=== PATIENT | male | born 1955 | race Caucasian/White ===

== ENCOUNTER 2023-06-11 09:06 | Outpatient (REF) | payer MEDICARE, SELFPAY | END 2023-06-11 09:07 | disposition home or self-care (01) | LOC: HO.HOSX 09:06 | PROVIDERS: Visit Provider Orthopaedic Surgery | DX: M25.561 Pain in right knee (principal); M54.50 Low back pain, unspecified; M79.604 Pain in right leg; Z79.899 Other long term (current) drug therapy | CPT/HCPCS: 73562; 99212 ==

== ENCOUNTER 2023-06-11 11:15 | Outpatient (AMB) | payer MEDICARE, BC, SELFPAY ==
--- NOTE | 2023-06-11 11:27 | A.OFFVIS_ITS ---
Intake Vital Signs 06/11/23 11:35 Height 5 ft 10 in Weight 223 lb BMI 32.0 Intake Visit Reasons: MOVIE [employer]ER[employer]-right knee pain, Low back pain Intake Note: Toribio is a 68 year old male who presents today with complaints of progressively worsening low back pain which radiates down his right leg as well as right leg stiffness. The patient did undergo right knee arthroscopic surgery on 03/06/2022. He reports minimal discomfort in his right knee. He denies any locking or giving way. He states that his right leg feels ?weak? at times. His symptoms have gotten worse over the last year in spite of continued non operative treatments. He has tried Tylenol and anti-inflammatory medicines which gave him minimal relief. He has also done physical therapy exercises which aggravated his pain. Allergies No Known Allergies Allergy (Verified 06/11/23 11:31) Medication List - Last Reconciled 06/11/23 by Satish Huerta MD aspirin 81 mg PO DAILY dorzolamide-timolol 22.3-6.8 mg/mL 1 drp ophthalmic (eye) Q12H fexofenadine 180 mg PO DAILY hydrochlorothiazide 25 mg PO DAILY latanoprost 0.005% 1 drp ophthalmic (eye) DAILY lisinopril 5 mg PO DAILY metformin ER 500 mg PO BID methylprednisolone (Medrol (Pasquale)) PO PER PKG DIR simvastatin 20 mg PO DAILY Physical Exam Vital Signs: BMI result Body Mass Index 32.0 Const Other: Well-nourished well-developed very friendly male awake alert and oriented x3 in no acute distress Back/Spine/Pelvis Other: Low back examination shows right-sided paraspinal muscle tenderness, pain with range of motion, positive straight leg raise test on the right at 70 degrees, 4/5 strength with testing of his right hip flexors and knee extensors when compared to 5/5 strength on his left side Extrem Other: Right knee examination shows that the surgical incisions are well healed, no erythema, minimal crepitus with range of motion, no discomfort with range of motion Results Reviewed Results Reviewed: X-rays of the patient's right knee taken today show moderate joint space narrowing most significant in the medial compartment, no acute bony abnormalities Assessment & Plan Assessment & Plan (1) Low Back Pain: Code(s): M54.50 - Low back pain, unspecified Plan Mr. Salinas presents with progressively worsening low back pain which radiates into his right leg as well as associated right leg weakness and stiffness possibly due to lumbar stenosis or a disc herniation. Thus, I will send the patient for an MRI of his lumbar spine for further evaluation. I will contact him by phone once the MRI results are available. He also has intermittent discomfort in his right knee due to degenerative joint disease. At this point his right knee discomfort is tolerable to him. I did give him a prescription for a Medrol Dosepak to help with his symptoms in the meantime. He will contact me prior to the MRI should his symptoms worsen in any way. Feel free to call me at any time should questions regarding his orthopedic management arise. I spent 22 minutes in reviewing the patient's records and imaging studies, seeing the patient and documenting in the medical record. Orders: Orders XR knee RT 3V Today M25.561 - Pain in right knee MR lumbar spine wo con Today M54.50 - Low back pain, unspecified, M79.604 - Pain in right leg Medications: New methylprednisolone (Medrol (Pasquale)) PO PER PKG DIR 21 ea 0RF Coding Level of Care Code Est Pt Level 2 (05373) Diagnoses Low Back Pain M54.50
[2023-06-11 11:35] VITALS: BMI 32.0
== END 2023-06-11 12:06 | disposition home or self-care (01) ==
PROVIDERS: Visit Provider Orthopaedic Surgery
DX: M54.50 Low back pain, unspecified (principal)
CPT/HCPCS: 99213

== ENCOUNTER 2023-08-12 12:35 | Outpatient (AMB) | payer MEDICARE, BC, SELFPAY ==
--- NOTE | 2023-08-12 13:03 | A.SPINEOV_ITS ---
Intake Intake Visit Reasons: LBP Intake Note: Mr Salinas is here today c/o LBP [employer] Required: No Allergies No Known Allergies Allergy (Verified 06/11/23 11:31) Assessment & Plan Assessment & Plan (1) Neuroforaminal stenosis of lumbar spine: Code(s): M48.061 - Spinal stenosis, lumbar region without neurogenic claudication Plan Dear colleague Thank you for referring Toribio Matthews to the office today with a chief complaint of tightness of his right leg. HPI: This 68-year-old male complains of a tightness of muscles of his right leg. The tightness is in the back of his leg and calf. The symptoms get worse with walking and standing. He was diagnosed with tendinitis and put in a herman at night which alleviated the pain in that area but he is still having the other symptom. A recent dose of prednisone improve the symptoms. A knee pathology was excluded. He denies weakness or numbness. The left side is unaffected. No abnormalities of his upper extremities. PMH: Hypertension, diabetes, glaucoma Medications: Medications were recorded in [place] Allergies: NKDA Social history: . Retired. Nonsmoker Physical Exam: Pleasant male. No neurological deficits for motor sensation or reflexes. Straight leg raise is negative. Radiological Studies: MRI done at [facility] shows [id number] right L5 foraminal stenosis. Impression/Plan: This patient presents with an atypical presentation of what could be a unilateral neurogenic claudication due to L5 foraminal stenosis. I would like to refer him for a L5 block to to see if this will resolve his symptoms. The patient is very hesitant to undergo any invasive procedures, which I understand. He will call my office if he wants to proceed. We will then refer him to our pain management team. Thank you for allowing me to participate in your patients care. total time spent was 45 minutes in counseling ,coordination of plan, personal review of imaging, and subsequent plan Rohit Sauceda MD, PhD Spine Fellowship Trained Neurosurgeon Director, [facility] Coding Level of Care Code New Pt Level 4 (25243) Diagnoses Neuroforaminal stenosis of lumbar spine M48.061
== END 2023-08-12 13:44 | disposition home or self-care (01) ==
PROVIDERS: Referring Provider Orthopaedic Surgery; Visit Provider Neurological Surgery
DX: M48.061 Spinal stenosis, lumbar region without neurogenic claudication (principal)
CPT/HCPCS: 99204

== ENCOUNTER → 2023-08-12 12:35 | Outpatient (BNVA) | payer MEDICARE, BC, SELFPAY | PROVIDERS: Visit Provider Neurological Surgery | DX: M48.061 Spinal stenosis, lumbar region without neurogenic claudication (principal) | CPT/HCPCS: 99202 ==

== ENCOUNTER 2023-10-01 10:16 | Outpatient (REF) | payer MEDICARE, SELFPAY ==
--- NOTE | ~2023-10-01 | XR_ITS ---
EXAMINATION: XR HIP, RIGHT CLINICAL INFORMATION: Pain in right hip COMPARISON: None available. TECHNIQUE: Two views of the right hip. FINDINGS: No fracture. Alignment is anatomic. Hip joint space is maintained. 0.4 x 4.1 cm thin linear calcification is seen medial to the right femoral head. This is of uncertain etiology. No vascular calcifications are seen.? Tendon calcification. XR/XR hip RT min 2V IMPRESSION: 1. No significant bony abnormality. 2. 0.4 x 4.1 cm thin linear calcification is seen medial to the right femoral neck. This is of uncertain etiology.? Tendon calcification. MRI scan scan could be obtained for further evaluation.
== END 2023-10-01 10:17 | disposition home or self-care (01) ==
LOC: HO.HOSX 10:16
PROVIDERS: Visit Provider Orthopaedic Surgery
DX: M25.551 Pain in right hip (principal)
CPT/HCPCS: 73502; 99212

== ENCOUNTER 2023-10-01 13:03 | Outpatient (AMB) | payer MEDICARE, BC, SELFPAY ==
[2023-10-01 13:07] VITALS: BMI 32.0
--- NOTE | 2023-10-01 13:07 | MHC.OFFVIS ---
Vital Signs 10/01/23 13:07 Height 5 ft 10 in Weight 223 lb BMI 32.0 Intake Visit Reasons: OV - new problem RT hip pain Intake Note: Toribio is a 68 year old male who presents with complaints of progressively worsening right hip pain and stiffness. The patient states that his pain has gotten worse over the last 2 years. Most of the pain is located within his right groin. The patient was evaluated in the neurosurgery department here at [facility]. No surgical intervention was recommended. The patient has tried Tylenol and anti-inflammatory medicines which gave him minimal relief. Allergies No Known Allergies Allergy (Verified 10/01/23 13:17) Medication List - Last Reconciled 10/01/23 by Satish Huerta MD aspirin 81 mg PO DAILY dorzolamide-timolol 22.3-6.8 mg/mL 1 drp ophthalmic (eye) Q12H fexofenadine 180 mg PO DAILY hydrochlorothiazide 25 mg PO DAILY latanoprost 0.005% 1 drp ophthalmic (eye) DAILY lisinopril 5 mg PO DAILY metformin ER 500 mg PO BID simvastatin 20 mg PO DAILY PFSH Surgical History (Updated 10/01/23 @ 13:19 by Siena Leonard CMA) Hx of umbilical hernia repair Hx of left knee surgery Hx of right knee surgery Social History (Updated 10/01/23 @ 13:19 by Siena Leonard CMA) Patient Tobacco Use Status: Never used Tobacco Current occupational status: retired Current occupation: Left hand dominate Physical Exam Vital Signs: BMI result Body Mass Index 32.0 Const Other: Well-nourished well-developed very friendly male awake alert and oriented x3 in no acute distress Extrem Other: Bilateral lower extremity examination shows good capillary refill, no skin lesions noted, normal sensation light touch Right hip examination shows decreased active and passive range of motion when compared to his left hip, pain with range of motion, no tenderness over his bursa, increased pain with forward flexion and internal rotation Results Reviewed Results Reviewed: X-rays of the patient's right hip show mild joint space narrowing, no acute bony abnormalities Assessment & Plan Assessment & Plan (1) Right hip pain: Code(s): M25.551 - Pain in right hip Category: Medical Plan Mr. Salinas presents with progressively worsening right hip pain and stiffness possibly due to avascular necrosis. Thus, I will send the patient for an MRI of his right hip for further evaluation. I will contact him by phone once the MRI results are available. Feel free to call me at any time should questions regarding his orthopedic management arise. I spent 22 minutes in reviewing the patient's records and imaging studies, seeing the patient and documenting in the medical record. Orders: Orders XR hip RT min 2V 10/01/23 M25.551 - Pain in right hip MR hip RT wo con 10/01/23 M87.051 - Idiopathic aseptic necrosis of right femur
== END 2023-10-01 13:46 | disposition home or self-care (01) ==
PROVIDERS: Visit Provider Orthopaedic Surgery
DX: M25.551 Pain in right hip (principal)
CPT/HCPCS: 99213

== ENCOUNTER 2023-11-13 10:12 | Outpatient (AMB) | payer MEDICARE, SELFPAY ==
--- NOTE | 2023-11-13 10:35 | A.OFFVIS_ITS ---
Vital Signs 11/13/23 10:48 Height 5 ft 10 in Weight 223 lb BMI 32.0 Intake Visit Reasons: OV-Right hip pain-evaluation Intake Note: Toribio is a 68 year old male who presents today for evaluation of his right hip AVN with pain worsening over the last two years. He has tried and failed at least 30 days of Tylenol and NSAIDs with minimal relief. Previously was seen with Dr. Huerta who ordered an MRI and referred to Dr. Gifford for further management. [facility] states: 1. Tendinopathy and high grade partial tearing of the gluteus minimums tendon and insertion with prominent adjacent edema. There is also tendinopathy and low- grade partial tearing at the anterior gluteus medius tendon insertion at the right greater trochanter. 2. Focal degenerative full-thickness cartilage thinning at the central lateral acetabulum with minimal subarticular change. Allergies No Known Allergies Allergy (Verified 11/13/23 10:49) HPI HPI OV-Right hip pain-evaluation: Details: Toribio is a 68 year old male who presents today for evaluation of his right hip AVN with pain worsening over the last two years. He has tried and failed at least 30 days of Tylenol and NSAIDs with minimal relief. Previously was seen with Dr. Huerta who ordered an MRI and referred to Dr. Gifford for further management. He has seen spine MD and not definitive etiology was identified. he describes pain with getting into and out of a car. He has difficulty raising his knee to his chest. He describes anterior groin pain. [facility] Surgical History Hx of umbilical hernia repair Hx of left knee surgery Hx of right knee surgery Social History Patient Tobacco Use Status: Never used Tobacco Current occupational status: retired Current occupation: Left hand dominate Physical Exam Vital Signs: BMI result Body Mass Index 32.0 Const Other: Well-nourished well-developed very friendly male awake alert and oriented x3 in no acute distress Extrem Other: Right hip examination shows decreased active and passive range of motion when compared to his left hip. There is pain with range of motion especially internal rotation. Results Reviewed Results Reviewed: I personally reviewed the MR images. MRI done at [facility] states: 1. Tendinopathy and high grade partial tearing of the gluteus minimums tendon and insertion with prominent adjacent edema. There is also tendinopathy and low- grade partial tearing at the anterior gluteus medius tendon insertion at the right greater trochanter. 2. Focal degenerative full-thickness cartilage thinning at the central lateral acetabulum with minimal subarticular change. Assessment & Plan Assessment & Plan (1) Arthritis of right hip: Code(s): M16.11 - Unilateral primary osteoarthritis, right hip Category: Medical Plan: Right hip arthritis predominantly acetabular sided. He is bothered but not overly so. I recommend right hip injection under fluoro. He will retrurn to see me if ~3 months. Orders: Referrals Pain Management Referral M16.11 - Unilateral primary osteoarthritis, right hip Coding Level of Care Code Est Pt Level 4 (67597) Diagnoses Arthritis of right hip M16.11
[2023-11-13 10:48] VITALS: BMI 32.0
== END 2023-11-13 11:18 | disposition home or self-care (01) ==
PROVIDERS: Visit Provider Orthopaedic Surgery
DX: M16.11 Unilateral primary osteoarthritis, right hip (principal)
CPT/HCPCS: 99214

== ENCOUNTER → 2023-11-13 10:12 | Outpatient (BNVA) | payer MEDICARE, SELFPAY | PROVIDERS: Visit Provider Orthopaedic Surgery | DX: M16.11 Unilateral primary osteoarthritis, right hip (principal) | CPT/HCPCS: 99212 ==

== ENCOUNTER 2023-12-22 06:16 | Outpatient (REF) | payer MEDICARE, SELFPAY ==
--- NOTE | ~2023-12-22 | FL_ITS ---
EXAMINATION: XR FLUOROSCOPY WITH IMAGES CLINICAL INFORMATION: Right hip osteoarthritis. COMPARISON: None available. TECHNIQUE: Fluoroscopy Supervised By: Dr. Gallo Villatoro. Fluoroscopy Time: 0.2 minutes. Cumulative Dose: 5 mGy. DAP: 0.0764 Gycm2. Images: 2. FINDINGS: Intraoperative fluoroscopy and spot films were performed during a procedure in the OR. A needle is seen overlying the right hip joint with intra-articular contrast media present. Please correlate with Dr. Villatoro's report for complete details. FL/FL guidance in treatment room IMPRESSION: Intraoperative fluoroscopy and spot films were obtained. Please see Dr. Villatoro's report for complete details.
== END 2023-12-22 06:17 | disposition home or self-care (01) ==
LOC: CF 06:16
PROVIDERS: Visit Provider Anesthesiology
DX: M16.11 Unilateral primary osteoarthritis, right hip (principal)
CPT/HCPCS: 20610; J2795; J3301; Q9967

== ENCOUNTER 2023-12-22 13:34 | Outpatient (AMB) | payer MEDICARE, SELFPAY ==
--- NOTE | 2023-12-22 14:07 | MHC.OFFVIS ---
Vital Signs 12/22/23 14:57 12/22/23 14:58 Height 5 ft 10 in 5 ft 10 in Weight 223 lb 223 lb BMI 32.0 32.0 BP 140/67 H 130/71 Blood Pressure Location Lt brachial Lt brachial Position Sitting Sitting Respiration 14 14 Pulse 73 62 Pulse Source Pulse Oximeter Pulse Oximeter Pulse Oximetry (%) 95 97 Oxygen Delivery Method Room Air Room Air Comment pre-op post-op Intake Visit Reasons: right hip joint steroid injection Allergies No Known Allergies Allergy (Verified 12/22/23 14:59) PFSH Surgical History Hx of umbilical hernia repair Hx of left knee surgery Hx of right knee surgery Social History Patient Tobacco Use Status: Never used Tobacco Current occupational status: retired Current occupation: Left hand dominate Physical Exam Vital Signs: Last Vital Signs Pulse 62 12/22/23 14:58 Resp 14 12/22/23 14:58 BP 130/71 12/22/23 14:58 Pulse Ox 97 12/22/23 14:58 Oxygen Delivery Method Room Air 12/22/23 14:58 BMI result Body Mass Index 32.0 Assessment & Plan Assessment & Plan (1) Arthritis of right hip: Code(s): M16.11 - Unilateral primary osteoarthritis, right hip Category: Medical Plan: Right Intra-articular hip injection. This patient is suffering from right hip osteoarthritis as well as multiple tendinopathy surrounding the right hip joint, as well as some calcifications in the projection of the femoral neck on the right. He was referred by Dr. Gifford to me to perform therapeutic intra-articular hip steroid injection. Informed consent was thoroughly explained to the patient. Risks and benefits of the steroid injections were explained. Alternatives were also explained including PRP injection. All questions were explained and answered.? The patient was taken inside of the operating room where he was positioned left lateral decubitus on operating table..? Time-out was performed delineating patient's name and date of , correct site, side, the nature of the procedure, patient's allergy, preoperative antibiotic if needed, need for VT prophylaxis..? All operating room staff was participating in OR time-out procedure.? Right hip area of the patient was prepped with ChloraPrep and draped with sterile towels.? Sterilely draped C-arm was brought over the operating field and picture of left and right lateral views of the bilateral hip joints were delineated on the screen.? The smaller joint silhouette was chosen as the target.? Direction of the femoral neck was noted and the projection of that direction was delineated on the skin with skin markers.? Projection of the right trochanter to the skin was chosen as the initial needle insertion point.? After that the skin and subcutaneous tissues was anesthetized with 2% lidocaine 2.5 mL.? 22 gauge 5 in long needle was inserted through the skin and started to advance to the joint space under anterior posterior view.? When needle entered the capsule of the joint small amount of the contrast was injected delineating intra-articular space.? After that treatment solution containing ropivacaine 0.5% and 40 mg of Kenalog was injected into the joint.? The needle was withdrawn sterile dressing was applied. The patient tolerated procedure well.? He went to recovery room where he recovered uneventfully. Orders: Orders FL guidance in treatment room 12/22/23 M16.11 - Unilateral primary osteoarthritis, right hip Coding Level of Care Code Procedure Only Diagnoses Arthritis of right hip M16.11
[2023-12-22 14:57] VITALS: BP 140/67; PULSE 73; RESP 14; O2SAT 95; BMI 32.0
[2023-12-22 14:58] VITALS: BP 130/71; PULSE 62; RESP 14; O2SAT 97; BMI 32.0
== END 2023-12-22 14:38 | disposition home or self-care (01) ==
LOC: HO.PMCPRC 13:34
PROVIDERS: Visit Provider Anesthesiology
DX: M16.11 Unilateral primary osteoarthritis, right hip (principal)
CPT/HCPCS: 20610; 77002

== ENCOUNTER 2024-01-18 11:14 | Outpatient (AMB) | payer MEDICARE, SELFPAY ==
--- NOTE | 2024-01-18 11:20 | MHC.OFFVIS ---
Vital Signs 01/18/24 11:26 Height 5 ft 10 in Weight 222 lb 4 oz BMI 31.9 BP 143/74 H Blood Pressure Location Lt brachial Position Sitting Respiration 16 Pulse 66 Pulse Source Pulse Oximeter Pulse Oximetry (%) 94 Oxygen Delivery Method Room Air Intake Visit Reasons: right hip injection Intake Note: Patient comes in for post-op appointment. Reports pain 08/22. Allergies No Known Allergies Allergy (Verified 01/18/24 11:26) HPI Comments Details: Roger is very pleasant 68 years old gentleman who presents in my office with complain on pain in the right groin and right lateral thigh aggravated by walking and standing. He was referred to this office by Dr. Gifford. He reports that this pain started about 2 years ago. He never had physical therapy. He never had occupational therapy. He had a consult with Dr. Gifford and he had an MRI of the right hip performed which demonstrated [id number] hip osteoarthritis. He was referred to me to perform therapeutic right hip steroid injection. He reported today pain aggravation of seizure. He reported not even few days of pain relief after the procedure. He reported that he was upset by Dr. Gifford decision to operate on his hip at this time. He was stating that 5-6 years from now he might not be in as good health as he is now. He wants to know his options in terms of pain management to treat his pain. His past medical history significant for medication control hypertension, medication controlled diabetes type 2 elevated cholesterol. His past surgical history significant for umbilical hernia repair x2 and bilateral knee arthroscopy total of 4 surgeries. He is retired individual. He denies smoking cigarettes denies alcohol denies recreational drugs. [facility] Surgical History Hx of umbilical hernia repair Hx of left knee surgery Hx of right knee surgery Social History Patient Tobacco Use Status: Never used Tobacco Current occupational status: retired Current occupation: Left hand dominate Review of Systems Const Reports no additional complaints ENT Reports Normal hearing present Card Reports no additional complaints Resp Reports no additional complaints GI Reports no additional complaints Reports no additional complaints Musc Reports as per HPI Neuro Reports no additional complaints, Reports Normal hearing present, Denies Abnormal speech present, Denies confusion and Denies Sensory deficit (Neuro) Psych Denies confusion Physical Exam Vital Signs: Last Vital Signs Pulse 66 01/18/24 11:26 Resp 16 01/18/24 11:26 BP 143/74 H 01/18/24 11:26 Pulse Ox 94 01/18/24 11:26 Oxygen Delivery Method Room Air 01/18/24 11:26 BMI result Body Mass Index 31.9 Const General: no acute distress; No confusion Nutritional Appearance: average body habitus and well nourished Orientation/consciousness: patient oriented x3 and No confusion Limitations: no limitations Eyes General: appearance normal, both eyes and all related structures Pupils: Equal, round and reactive pupils present EOM: EOMs intact bilaterally Neck Neck: Yes full ROM Chest Chest palpation & inspection: normal inspection of the chest Resp Effort & Inspection: normal respiratory effort, able to speak in complete sentences, normal respiratory pattern, no audible wheezes and no cough Cardio Jugular venous distension: no JVD GI Inspection: Yes normal to inspection Neuro General: patient oriented x3, gait normal and No confusion Cranial nerves: Yes CN's II-XII intact bilaterally, Yes Equal, round and reactive pupils present, Yes Normal hearing present and Yes Ability to bilaterally elevate shoulders present Speech: No Abnormal speech present Gait exam (Neuro): Normal gait present Motor exam (neuro): 5/5 motor strength present throughout Sensory Exam: No Sensory deficit (Neuro) Extrem Other: On the examination there is exacerbation of the pain in the right groin and on the lateral surface of the hip with lateral rotation of the femur. There is no pain aggravation with medial rotation of the femur. Range of motion is limited on the right. General: No pedal edema Psych Speech and movement: Normal speech and movement present Affect: normal affect Attitude: cooperative Thought process: Normal thought process present Thought content: Normal thought content present Insight: Good insight present (Psych) Judgement: Good judgement present (Psych) Results Reviewed Results Reviewed: MRI done at [facility] states: 1. Tendinopathy and high grade partial tearing of the gluteus minimums tendon and insertion with prominent adjacent edema. There is also tendinopathy and low-grade partial tearing at the anterior gluteus medius tendon insertion at the right greater trochanter. 2. Focal degenerative full-thickness cartilage thinning at the central lateral acetabulum with minimal subarticular change. Assessment & Plan Assessment & Plan (1) Arthritis of right hip: Code(s): M16.11 - Unilateral primary osteoarthritis, right hip Category: Medical (2) Right hip pain: Code(s): M25.551 - Pain in right hip Category: Medical (3) Tendinopathy involving hip: Code(s): M67.959 - Unspecified disorder of synovium and tendon, unspecified thigh Category: Medical (4) Chronic pain syndrome: Code(s): G89.4 - Chronic pain syndrome Category: Medical Plan This patient was diagnose with tendinopathy and arthritis of the right hip as well as chronic pain syndrome. Unfortunately injection of the steroids into right hip joint did not alleviate his pain. Patient is very upset that he can not go for total hip replacement now, he states that when he is 73 his health condition might not be as good as it is today. I pointed out to him that with moderate hip osteoarthritis there is no indication for his desired surgery and the insurance companies will not cover the procedure. I offered him today PRP injection in the right hip versus [facility] [employer] to stimulate spinal cord in the right lumbar gutter. I also pointed out to him that physical therapy could be tried to help his pain however in my opinion it is not as effective for his conditions. The patient's daughter owes herself in office of physical therapy. He decided to go for physical therapy 1st. I pointed out to him that if he wants to come back he just need to give us a call and schedule follow-up appointment with me. Patient Instructions: I here by testify that I spent 45 minutes in conversation with this patient as well as evaluating patient's diagnostic studies at [facility] as well as planning his care and organizing this note. Coding Level of Care Code New Pt Level 4 (53939) Diagnoses Arthritis of right hip M16.11 Right hip pain M25.551 Tendinopathy involving hip M67.959 Chronic pain syndrome G89.4
[2024-01-18 11:26] VITALS: BP 143/74; PULSE 66; RESP 16; O2SAT 94; BMI 31.9
== END 2024-01-18 11:44 | disposition home or self-care (01) ==
PROVIDERS: Visit Provider Anesthesiology
DX: M16.11 Unilateral primary osteoarthritis, right hip (principal); M25.551 Pain in right hip; M67.959 Unspecified disorder of synovium and tendon, unspecified thigh; G89.4 Chronic pain syndrome
CPT/HCPCS: 99203

== ENCOUNTER → 2024-01-18 11:14 | Outpatient (BNVA) | payer MEDICARE, SELFPAY | PROVIDERS: Visit Provider Anesthesiology | DX: M16.11 Unilateral primary osteoarthritis, right hip (principal); M67.959 Unspecified disorder of synovium and tendon, unspecified thigh; G89.4 Chronic pain syndrome | CPT/HCPCS: 99202 ==

== ENCOUNTER 2024-03-31 09:02 | Outpatient (AMB) | payer MEDICARE, SELFPAY ==
--- NOTE | 2024-03-31 09:06 | MHC.OFFVIS ---
Intake Visit Reasons: OV-Right hip pain- inj done 12/22/23 w/ PMGMT Intake Note: Toribio is a 69 year old male who presents today for a follow up of his right hip OA. He was last seen in October of this year and an Injection was ordered to be done with pain mgmt. Injection was administered by Dr. Villatoro on 12/22/23. Patient rpoerts that this injection was not helpful. Patient reports that his pain is felt from the lateral aspect of the hip and wraps into the groin and radiates down the leg to the posterior aspect of the knee. He has pain all the time, pain worsens with increased activity. He does take Tylneol for his pain PRN. Allergies No Known Allergies Allergy (Verified 03/31/24 09:06) HPI HPI OV-Right hip pain- inj done 12/22/23 w/ PMGMT: Details: Toribio is a 69 year old male who presents today for a follow up of his right hip OA. He was last seen in October of this year and an Injection was ordered to be done with pain mgmt. Injection was administered by Dr. Villatoro on 12/22/23. Patient rpoerts that this injection was not helpful. Patient reports that his pain is felt from the lateral aspect of the hip and wraps into the groin and radiates down the leg to the posterior aspect of the knee. He has pain all the time, pain worsens with increased activity. He does take Tylneol for his pain PRN. PFSH Surgical History Hx of umbilical hernia repair Hx of left knee surgery Hx of right knee surgery Social History Patient Tobacco Use Status: Never used Tobacco Current occupational status: retired Current occupation: Left hand dominate Physical Exam Extrem Other: Roger has a negative impingement test on the right. He does have restricted range of motion mild pain with hip flexion and some tenderness along the Assessment & Plan Assessment & Plan (1) Neuroforaminal stenosis of lumbar spine: Code(s): M48.061 - Spinal stenosis, lumbar region without neurogenic claudication Category: Medical Plan: (2) Arthritis of right hip: Code(s): M16.11 - Unilateral primary osteoarthritis, right hip Category: Medical Plan: Roger is a 69-year-old gentleman with several factors contributing to ?hip? pain. He had a hip injection which was almost entirely on helpful. He has MRI and radiographic evidence of mild acetabular sided hip OA and abductor tendinosis. He has seen the spine surgeons and has a L5 right-sided stenosis picture as well. Dr. Mendieta recommended a L5 block for, I can only assume, diagnostic and potentially therapeutic purposes. Since the hip injection was unhelpful I think it is reasonable to get a L5 block. I also think it is reasonable to start physical therapy as his hip mechanics are poor he has abductor tendinitis, limited motion and a physical therapy program to focus on gait mechanics and core strengthening I think would be very helpful. This was written and his daughter is a physical therapist so he has said he will take it to her and her office. I think this is reasonable. I have ordered an L5 lumbar block with Dr. Chauhan. (3) Tendonitis involving right hip abductors: Code(s): M76.891 - Other specified enthesopathies of right lower limb, excluding foot Category: Medical Plan: Orders: Orders PT Evaluation and Treatment Today M16.11 - Unilateral primary osteoarthritis, right hip, M48.061 - Spinal stenosis, lumbar region without neurogenic claudication, M76.891 - Other specified enthesopathies of right lower limb, excluding foot Referrals Pain Management Referral M48.061 - Spinal stenosis, lumbar region without neurogenic claudication Coding Level of Care Code Est Pt Level 4 (18712) Diagnoses Neuroforaminal stenosis of lumbar spine M48.061 Arthritis of right hip M16.11 Tendonitis involving right hip abductors M76.891
== END 2024-03-31 10:04 | disposition home or self-care (01) ==
PROVIDERS: Visit Provider Orthopaedic Surgery
DX: M48.061 Spinal stenosis, lumbar region without neurogenic claudication (principal); M16.11 Unilateral primary osteoarthritis, right hip; M76.891 Other specified enthesopathies of right lower limb, excluding foot
CPT/HCPCS: 99214

== ENCOUNTER → 2024-03-31 09:02 | Outpatient (BNVA) | payer MEDICARE, SELFPAY | PROVIDERS: Visit Provider Orthopaedic Surgery | DX: M16.11 Unilateral primary osteoarthritis, right hip (principal); M48.061 Spinal stenosis, lumbar region without neurogenic claudication; M76.891 Other specified enthesopathies of right lower limb, excluding foot | CPT/HCPCS: 99212 ==

== ENCOUNTER 2024-04-28 06:16 | Outpatient (REF) | payer MEDICARE, SELFPAY | END 2024-04-28 06:17 | disposition home or self-care (01) | LOC: CF 06:16 | PROVIDERS: Visit Provider Internal Medicine | DX: M48.061 Spinal stenosis, lumbar region without neurogenic claudication (principal); M54.16 Radiculopathy, lumbar region | CPT/HCPCS: 64483; J1100; J2003; Q9967 ==

== ENCOUNTER 2024-04-28 10:08 | Outpatient (AMB) | payer MEDICARE, SELFPAY ==
[2024-04-28 10:15] VITALS: BP 147/74; PULSE 62; O2SAT 96
--- NOTE | 2024-04-28 10:15 | MHC.OFFVIS ---
Vital Signs 04/28/24 10:15 04/28/24 10:45 BP 147/74 H 148/78 H Blood Pressure Location Lt brachial Lt brachial Position Sitting Sitting Pulse 62 62 Pulse Source Pulse Oximeter Pulse Oximeter Pulse Oximetry (%) 96 97 Oxygen Delivery Method Room Air Room Air Intake Visit Reasons: Right L5-S1 TFESI Allergies No Known Allergies Allergy (Verified 03/31/24 09:06) HPI HPI Right L5-S1 TFESI: Details: Patient presents for scheduled procedure. Denies any recent cough, cold, infection, fever or other significant changes in medical history since last office visit. [facility] Surgical History Hx of umbilical hernia repair Hx of left knee surgery Hx of right knee surgery Social History Patient Tobacco Use Status: Never used Tobacco Current occupational status: retired Current occupation: Left hand dominate Physical Exam Vital Signs: Last Vital Signs Pulse 62 04/28/24 10:15 BP 147/74 H 04/28/24 10:15 Pulse Ox 96 04/28/24 10:15 Oxygen Delivery Method Room Air 04/28/24 10:15 Office Procedures Details: Transforaminal epidural steroid injection, right L5 After obtaining written consent, pre-procedure blood pressure and heart rate were stable and recorded in the nursing record. The patient was placed in the prone position on the fluoroscopy table. The lumbosacral area was prepped with chloraprep, allowed to dry and draped in sterile fashion. Using fluoroscopy, the skin overlying our target was anesthetized with 0.5% lidocaine. A 22 gauge 3.5 inch spinal needle was advanced to the safe triangle in the upper pole of the right L5 foramen. No paresthesias were elicited with needle placement and aspiration was negative for blood and CSF. Correct needle position was confirmed with approximately 1 ml contrast dye (Omnipaque 180 mg/ml) injected under real-time fluoroscopy. No evidence of vascular or intrathecal uptake was seen and there was both epidural and peripheral spread of the contrast agent. 10 mg dexamethasone plus 1 ml containing 0.5% lidocaine was slowly injected. The needle was flushed and removed. The skin was cleansed and a sterile bandages were applied. The patient tolerated the procedure well and no complications were encountered. Following the procedure the patient's vital signs were stable. The patient was discharged home in good condition with post-procedural instructions. Time Out: Immediately prior to the procedure, the following was verbally confirmed that there is a signed consent form and that the correct patient, planned procedure, site and side are consistent with documentation and that necessary equipment and/or blood products are available prior to the start of the case. Complications: none EBL: <5 cc 36626 - Lumbar/Sacral Procedure code (CPT) selection complete Assessment & Plan Assessment & Plan (1) Lumbar radicular pain: Code(s): M54.16 - Radiculopathy, lumbar region Category: Medical Plan Patient is status post right L5 TFESI. Patient tolerated procedure well and was discharged home in stable condition with discharge instructions. All questions were answered. We will follow-up via telephone or in clinic to assess response to therapy. A follow-up appointment was made during today's visit. Orders: Orders FL guidance in treatment room Today M48.061 - Spinal stenosis, lumbar region without neurogenic claudication Coding Level of Care Code Procedure Only Diagnoses Lumbar radicular pain M54.16 CPT Codes Transforaminal Epidural Steroid Inj - TESI 3: 08820 - Lumbar/Sacral ([id number])
[2024-04-28 10:45] VITALS: BP 148/78; PULSE 62; O2SAT 97
== END 2024-04-28 10:46 | disposition home or self-care (01) ==
LOC: HO.PMCPRC 10:09
PROVIDERS: Visit Provider Internal Medicine
DX: M54.16 Radiculopathy, lumbar region (principal)
CPT/HCPCS: 64483

== ENCOUNTER 2024-05-19 12:08 | Outpatient (AMB) | payer MEDICARE, SELFPAY ==
--- NOTE | 2024-05-19 12:16 | MHC.OFFVIS ---
Vital Signs 05/19/24 12:17 Height 5 ft 10 in Weight 220 lb BMI 31.6 Intake Visit Reasons: OV - Right hip OA - L5 TFESI 04/28/24 with PM Intake Note: Toribio is a 69 year old male who presents today for a follow up of his right hip OA. History of hip injection 12/22/23 which was unhelpful, he was referred for a L5 block with Pain Mgmt. A L5 TFESI was done with pain mgmt on . Patient reports after his second injection he found more relief in the right hip. Allergies No Known Allergies Allergy (Verified 05/19/24 12:17) HPI HPI OV - Right hip OA - L5 TFESI 04/28/24 with PM: Details: Toribio is a 69 year old male who presents today for a follow up of his right hip OA. History of hip injection 12/22/23 which was unhelpful, he was referred for a L5 block with Pain Mgmt. A L5 TFESI was done with pain mgmt on . Patient reports after his second injection he found more relief in the right hip. He is reporting 90% of his pain has gone. He is doing exercises and happy with the results so far. [facility] Surgical History Hx of umbilical hernia repair Hx of left knee surgery Hx of right knee surgery Social History Patient Tobacco Use Status: Never used Tobacco Current occupational status: retired Current occupation: Left hand dominate Physical Exam Vital Signs: BMI result Body Mass Index 31.6 Assessment & Plan Assessment & Plan (1) Lumbar radicular pain: Code(s): M54.16 - Radiculopathy, lumbar region Category: Medical Plan: Much improved after lumbar spine injection. I think this confirms that hip arthroplasty is not indicated and then his primary pain generator is not his hip. I recommend he continue his follow up care with Dr. Chauhan and the pain management team. I discussed this with him. He is amenable to the plan. May return to see me if needed. Coding Level of Care Code Est Pt Level 3 (44507) Diagnoses Lumbar radicular pain M54.16
[2024-05-19 12:17] VITALS: BMI 31.6
== END 2024-05-19 13:03 | disposition home or self-care (01) ==
PROVIDERS: Visit Provider Orthopaedic Surgery
DX: M54.16 Radiculopathy, lumbar region (principal)
CPT/HCPCS: 99213

== ENCOUNTER → 2024-05-19 12:08 | Outpatient (BNVA) | payer MEDICARE, SELFPAY | PROVIDERS: Visit Provider Orthopaedic Surgery | DX: M16.11 Unilateral primary osteoarthritis, right hip (principal); M54.16 Radiculopathy, lumbar region | CPT/HCPCS: 99212 ==

== ENCOUNTER 2024-05-25 09:42 | Outpatient (AMB) | payer MEDICARE, SELFPAY ==
--- NOTE | 2024-05-25 09:45 | MHC.OFFVIS ---
Vital Signs 05/25/24 09:47 Height 5 ft 10 in Weight 225 lb BMI 32.3 BP 139/70 Blood Pressure Location Lt brachial Position Sitting Respiration 15 Pulse 66 Pulse Source Pulse Oximeter Pulse Oximetry (%) 96 Oxygen Delivery Method Room Air Intake Visit Reasons: s/p Right L5-S1 TFESI Allergies No Known Allergies Allergy (Verified 05/25/24 09:48) Medication List - Last Reconciled 05/25/24 by Ilana King LPN aspirin 81 mg PO DAILY fexofenadine 180 mg PO DAILY hydrochlorothiazide 25 mg PO DAILY latanoprost 0.005% 1 drp ophthalmic (eye) DAILY lisinopril 5 mg PO DAILY metformin ER 500 mg PO BID simvastatin 20 mg PO DAILY HPI HPI s/p Right L5-S1 TFESI: Details: 69-year-old male who is accompanied today by his status post right [id number]. While in the office today, the patient reports 90% relief following the steroid injection. He has been doing strengthening exercise at home. He states that his recent MRI of the right hip and lumbar spine showed some arthritis in his right hip and back. 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 Past procedure: 04/28/24: Right [id number], 90% relief. ON LICENSE OF [facility] Surgical History Hx of umbilical hernia repair Hx of left knee surgery Hx of right knee surgery Social History Patient Tobacco Use Status: Never used Tobacco Current occupational status: retired Current occupation: Left hand dominate Review of Systems Const All systems reviewed & are unremarkable except as noted in HPI and below Physical Exam Vital Signs: Last Vital Signs Pulse 66 05/25/24 09:47 Resp 15 05/25/24 09:47 BP 139/70 05/25/24 09:47 Pulse Ox 96 05/25/24 09:47 Oxygen Delivery Method Room Air 05/25/24 09:47 BMI result Body Mass Index 32.3 General: Appears afebrile. Alert and oriented. Mood and affect appropriate. Follows and participates in conversation appropriately. Respiratory effort is unlabored. Able to transition from sit to stand unassisted. Ambulates with bilaterally normal heel strike and toe off. Results Reviewed Results Reviewed: No imaging is available for review. Assessment & Plan Assessment & Plan (1) Lumbar radicular pain: Code(s): M54.16 - Radiculopathy, lumbar region Category: Medical Plan The patient is status post right [id number]. He endorses 90% relief following the injection. Discussed our preference is to keep the injections to a minimum. He was recommended to continue stretching exercise. He will RTO with worsening pain as needed. Scribed for Dr. Chauhan by Landon Gallardo lead medical technologist, on 05/25/2024.? I, Dr. Chauhan, have personally reviewed and agree with the information entered by the scribe. Coding Level of Care Code Est Pt Level 3 (15780) Diagnoses Lumbar radicular pain M54.16
[2024-05-25 09:47] VITALS: BP 139/70; PULSE 66; RESP 15; O2SAT 96; BMI 32.3
== END 2024-05-25 10:04 | disposition home or self-care (01) ==
PROVIDERS: Visit Provider Internal Medicine
DX: M54.16 Radiculopathy, lumbar region (principal)
CPT/HCPCS: 99213

== ENCOUNTER → 2024-05-25 09:42 | Outpatient (BNVA) | payer MEDICARE, SELFPAY | PROVIDERS: Visit Provider Internal Medicine | DX: M54.16 Radiculopathy, lumbar region (principal) | CPT/HCPCS: 99212 ==

== ENCOUNTER 2024-09-14 09:01 | Outpatient (REF) | payer MEDICARE, SELFPAY ==
--- NOTE | ~2024-09-14 | XR_ITS ---
CLINICAL HISTORY: M25.561 - Pain in right knee 3 view right knee Comparison: None Findings: Bones intact. No dislocations. There is loss of height of the medial compartment, possible osteoarthritis. No joint effusion. No radiopaque foreign body. IMPRESSION: 1. No acute findings. This document has been electronically signed by: Francisco Rivera MD on 09/16/2024 08:31:38
--- OUTSIDE RECORDS SUMMARY | 2024-09-15 09:16 | XMS_ITS | Clinical Summary ---
Author Organization [facility] Address [address] [place] [address] Care Team Providers Care Rehabilitation Physician Name Role Phone Kyle Shayy Primary Care Provider [phone] Allergies Active Allergy Reactions Criticality Noted Date [...] age to complete this topic Care Teams Rehabilitation Physician Relationship Specialty Start Date End Date Shayy Wright [address] [place] [id number] PCP - General Family Medicine 11/18/21
== END 2024-09-14 09:02 | disposition home or self-care (01) ==
LOC: HO.HOSX 09:01
PROVIDERS: Visit Provider Orthopaedic Surgery
DX: M25.561 Pain in right knee (principal)
CPT/HCPCS: 73562; 99212

== ENCOUNTER 2024-09-14 13:18 | Outpatient (AMB) | payer MEDICARE, SELFPAY ==
--- NOTE | 2024-09-14 13:33 | A.OFFVIS_ITS ---
Vital Signs 09/14/24 13:53 Height 5 ft 10 in Weight 225 lb BMI 32.3 Intake Visit Reasons: NewProb- RT knee pain Intake Note: Toribio is a 69 year old male who presents with complaints of progressively worsening right knee pain. He has undergone 2 right knee arthroscopic surgeries in the past. The most recent surgery was approximately 3 years ago. He got minimal relief from that procedure. He denies any locking or giving way. He has had cortisone injections which gave him minimal relief. He has failed the last 3 months of conservative treatment. He has tried Tylenol and anti- inflammatory medicines which gave him minimal relief. He wishes to hold off on further surgery if at all possible. Allergies No Known Allergies Allergy (Verified 09/14/24 13:33) Medication List - Last Reconciled 09/14/24 by Satish Huerta MD aspirin 81 mg PO DAILY fexofenadine 180 mg PO DAILY hydrochlorothiazide 25 mg PO DAILY latanoprost 0.005% 1 drp ophthalmic (eye) DAILY lisinopril 5 mg PO DAILY metformin ER 500 mg PO BID simvastatin 20 mg PO DAILY PFSH Surgical History Hx of umbilical hernia repair Hx of left knee surgery Hx of right knee surgery Social History Patient Tobacco Use Status: Never used Tobacco Current occupational status: retired Current occupation: Left hand dominate Physical Exam Vital Signs: BMI result Body Mass Index 32.3 Const Other: Well-nourished well-developed very friendly male awake alert and oriented x3 in no acute distress Extrem Other: Bilateral lower extremity examination shows good capillary refill, no skin lesions noted, normal sensation light touch Right knee examination shows a minimal effusion, palpable crepitus with range of motion, pain with range of motion, no instability Results Reviewed Results Reviewed: X-rays of the patient's right knee show moderate diffuse joint space narrowing, no acute bony abnormalities Assessment & Plan Assessment & Plan (1) Osteoarthritis of right knee: Code(s): M17.11 - Unilateral primary osteoarthritis, right knee Category: Medical Plan Mr. Salinas presents with right knee pain due to osteoarthritis. I had a lengthy discussion with the patient regarding the treatment options. He wishes to hold off on total knee replacement surgery for as long as possible. I agree with this plan. He has not gotten good relief from cortisone injections in the past. Thus, I will see whether or not the patient's insurance company will cover a viscosupplementation injection, such as Durolane. I will see him back once the injection is available. Feel free to call me at any time should questions regarding his orthopedic management arise. I spent 20 minutes in reviewing the patient's records and imaging studies, seeing the patient and documenting in the medical record. Orders: Orders XR knee RT 3V Today M25.561 - Pain in right knee Coding Level of Care Code Est Pt Level 3 (50734) Complex EM visit Add On G2211 Diagnoses Osteoarthritis of right knee M17.11
[2024-09-14 13:53] VITALS: BMI 32.3
--- OUTSIDE RECORDS SUMMARY | 2024-09-14 15:55 | XMS_ITS | Clinical Summary ---
Author Organization [facility] Address [address] [place] [address] Care Team Providers Care Corking Machine Operator Name Role Phone Kyle Shayy Primary Care Provider [phone] Allergies Active Allergy Reactions Criticality Noted Date Comments Tolmetin 03/24/2005 Medications Medication Sig Dispensed Refills Start Date End Date Status aspirin (EQ Aspirin Adult Low Dose) 81 MG EC tablet Take 1 tablet by mouth daily. 0 06/17/2007 Active hydroCHLOROthiazide (HYDRODIURIL) tablet 25 mg Take 25 mg by mouth daily. 0 11/21/2021 Active lisinopril (PRINIVIL,ZESTRIL) tablet 5 mg Take 5 mg by mouth daily. 0 11/26/2021 Active metFORMIN (GLUCOPHAGE-XR) ER 24 hr tablet 500 mg Take 1 tablet by mouth daily. 0 11/26/2021 Active simvastatin (ZOCOR) tablet 20 mg Take 1 tablet by mouth every night at bedtime. 0 11/26/2021 Active HYDROcodone-acetamin ophen (NORCO) 5-325 MG per tablet Take 1 tab every 6 hours as needed for pain following your right knee surgery 20 tablet 0 02/25/2022 Active Family History Medical History Relation Name Comments Diabetes Brother Hypertension Brother Diabetes Father Hypertension Father Relation Name Status Comments Brother Father Social History Tobacco Use Types Packs/Day Years Used Date Smoking Tobacco: Never Assessed Sex and Gender Information Value Date Recorded Sex Assigned at Not on file Gender Identity Not on file Sexual Orientation Not on file Job Start Date Occupation Industry Not on file Not on file Not on file Last Filed Vital Signs Vital Sign Reading Time Taken Comments Blood Pressure - - Pulse - - Temperature - - Respiratory Rate - - Oxygen Saturation - - Inhaled Oxygen Concentration - - Weight 99.8 kg (220 lb) 01/10/2022 8:55 AM EDT Height 177.8 cm (5' 10 ) 01/10/2022 8:55 AM EDT Body Mass Index 31.57 01/10/2022 8:55 AM EDT Plan of Treatment Health Maintenance Due Date Last Done Comments Hepatitis C Screening 1953 Depression Screening 1965 BMI Counseling 1971 Preventative Health Evaluation 1971 Colon Cancer Screening (Colonoscopy) 1998 Shingrix-Zoster Vaccine (1 of 2) 2003 Fall Risk Assessment 2018 Pneumococcal Vaccine (1 of 1 - PCV) 2018 DTap / Tdap / Td (2 - Td or Tdap) 06/18/2022 06/18/2012 COVID-19 Vaccine ( - season) 2024 04/18/2022, 03/29/2021, 08/29/2020, Additional history exists Influenza Vaccine (#1) 2024 03/13/2020 RSV Adult > 60+ Yrs or (1 - 1-dose 75+ series) 02/28/2028 Hepatitis B Vaccines Aged Out No long er eligible based on patient's age to complete this topic RSV Ped < 20 months Aged Out No longe r eligible based on patient's age to complete this topic Care Teams Corking Machine Operator Relationship Specialty Start Date End Date Shayy Wright [address] [place] [id number] PCP - General Family Medicine 11/18/21
== END 2024-09-14 14:07 | disposition home or self-care (01) ==
LOC: HO.HOS 13:19
PROVIDERS: Visit Provider Orthopaedic Surgery
DX: M17.11 Unilateral primary osteoarthritis, right knee (principal)
CPT/HCPCS: 99213; G2211

== ENCOUNTER → 2024-09-14 13:34 | Outpatient (BNV) | payer MEDICARE, SELFPAY | PROVIDERS: Visit Provider Specialist | DX: M25.561 Pain in right knee (principal) | CPT/HCPCS: 73562 ==

== ENCOUNTER 2024-11-02 11:01 | Outpatient (AMB) | payer MEDICARE, SELFPAY ==
[2024-11-02 11:08] VITALS: BMI 32.3
--- NOTE | 2024-11-02 11:08 | A.OFFVIS_ITS ---
Vital Signs 11/02/24 11:08 Height 5 ft 10 in Weight 225 lb BMI 32.3 Intake Visit Reasons: Inj- Right knee Euflexxa #1 Intake Note: Toribio is a 69 year old male who presents today for his first dose of the Euflexxa gel injection, right knee. He describes his right knee pain as sharp in nature. He has tried Tylenol and anti-inflammatory medicines which gave him minimal r elief. He would like to hold off on total knee replacement surgery for as long as possible. He has failed the last 3 months of conservative treatment. Allergies No Known Allergies Allergy (Verified 11/02/24 11:08) Medication List - Last Reconciled 11/02/24 by Satish Huerta MD aspirin 81 mg PO DAILY fexofenadine 180 mg PO DAILY hydrochlorothiazide 25 mg PO DAILY latanoprost 0.005% 1 drp ophthalmic (eye) DAILY lisinopril 5 mg PO DAILY metformin ER 500 mg PO BID simvastatin 20 mg PO DAILY PFSH Surgical History Hx of umbilical hernia repair Hx of left knee surgery Hx of right knee surgery Social History Patient Tobacco Use Status: Never used Tobacco Current occupational status: retired Current occupation: Left hand dominate Physical Exam Vital Signs: BMI result Body Mass Index 32.3 Const Other: Well-nourished well-developed very friendly male awake alert and oriented x3 in no acute distress Extrem Other: Bilateral lower extremity examination shows good capillary refill, no skin lesions noted, normal sensation light touch Right knee examination shows a minimal effusion, palpable crepitus with range of motion, pain with range motion, no instability Office Procedures AMB Joint Injection/Aspiration Joint Injection/Aspiration Primary Site: right knee Prep: site was prepped using aseptic technique Injected: 20 mg of (Euflexxa viscosupplementation) and 1% plain lidocaine Procedure: The patient tolerated the procedure well Coding 18150 - Large joint Procedure code (CPT) selection complete Results Reviewed Results Reviewed: X-rays of the patient's right knee taken previously show joint space narrowing, subchondral sclerosis, no acute bony abnormalities Assessment & Plan Assessment & Plan (1) Osteoarthritis of right knee: Code(s): M17.11 - Unilateral primary osteoarthritis, right knee Category: Medical Plan Mr. Salinas presents with right knee pain due to osteoarthritis. The risks and benefits of a series of Euflexxa viscosupplementation injections were discussed at length with the patient. The patient wishes to proceed. Tolerated the 1st Euflexxa injection well. He will continue with his activity modifications. He will follow up next week as scheduled. I spent 20 minutes in reviewing the patient's records and imaging studies, seeing the patient and documenting in the medical record. Orders: Orders AMB Joint Injection/Aspiration Today M17.11 - Unilateral primary osteoarthritis, right knee Coding Level of Care Code Est Pt Level 3 (96709) Complex EM visit Add On G2211 Diagnoses Osteoarthritis of right knee M17.11 CPT Codes Coding - 42731 Large joint: 04238 - Large joint ([id number])
--- OUTSIDE RECORDS SUMMARY | 2024-11-02 12:25 | XMS_ITS | Clinical Summary ---
Author Organization [facility] Address [address] [place] [address] Care Team Providers Care Experimental Worker Name Role Phone Kyle Shayy Primary Care Provider [phone] Allergies Active Allergy Reactions Criticality Noted Date [...] age to complete this topic Care Teams Experimental Worker Relationship Specialty Start Date End Date Shayy Wright [address] [place] [id number] PCP - General Family Medicine 11/18/21
== END 2024-11-02 11:30 | disposition home or self-care (01) ==
LOC: HO.HOS 11:02
PROVIDERS: Visit Provider Orthopaedic Surgery
DX: M17.11 Unilateral primary osteoarthritis, right knee (principal)
CPT/HCPCS: 20610; 99213

== ENCOUNTER → 2024-11-02 11:01 | Outpatient (BNVA) | payer MEDICARE, SELFPAY | PROVIDERS: Visit Provider Orthopaedic Surgery | DX: M17.11 Unilateral primary osteoarthritis, right knee (principal) | CPT/HCPCS: 20610; 99212; J2003; J7323 ==

== ENCOUNTER 2024-11-09 11:26 | Outpatient (AMB) | payer MEDICARE, SELFPAY ==
--- NOTE | 2024-11-09 11:32 | MHC.OFFVIS ---
Vital Signs 11/09/24 11:33 Height 5 ft 10 in Weight 225 lb BMI 32.3 Intake Visit Reasons: Inj- Right knee Euflexxa #2 Intake Note: Toribio is a 69 year old male who presents for follow-up of his right knee pain. He states that he got mild relief from the 1st Euflexxa injection. He continues with his home exercise program. Allergies No Known Allergies Allergy (Verified 11/09/24 11:33) Medication List - Last Reconciled 11/09/24 by Satish Huerta MD aspirin 81 mg PO DAILY fexofenadine 180 mg PO DAILY hydrochlorothiazide 25 mg PO DAILY latanoprost 0.005% 1 drp ophthalmic (eye) DAILY lisinopril 5 mg PO DAILY metformin ER 500 mg PO BID simvastatin 20 mg PO DAILY PFSH Surgical History Hx of umbilical hernia repair Hx of left knee surgery Hx of right knee surgery Social History Patient Tobacco Use Status: Never used Tobacco Current occupational status: retired Current occupation: Left hand dominate Physical Exam Vital Signs: BMI result Body Mass Index 32.3 Extrem Other: Right knee examination shows a minimal effusion, palpable crepitus with range of motion, pain with range of motion, no instability Office Procedures AMB Joint Injection/Aspiration Joint Injection/Aspiration Primary Site: right knee Prep: site was prepped using aseptic technique Injected: 20 mg of (Euflexxa viscosupplementation) and 1% plain lidocaine Procedure: The patient tolerated the procedure well Coding 05333 - Large joint Procedure code (CPT) selection complete Results Reviewed Results Reviewed: X-rays of the patient's right knee show joint space narrowing, subchondral sclerosis, no acute bony abnormalities Assessment & Plan Assessment & Plan (1) Osteoarthritis of right knee: Code(s): M17.11 - Unilateral primary osteoarthritis, right knee Category: Medical Plan Mr. Salinas presents with right knee pain due to osteoarthritis. The risks and benefits of a 2nd Euflexxa injection were discussed at length with the patient. The patient wished to proceed. He tolerated the injection well. He will continue with his home exercise program. He will follow up for his 3rd injection next week as scheduled. Feel free to call me at any time should questions regarding his orthopedic management arise. Orders: Orders AMB Joint Injection/Aspiration Today M17.11 - Unilateral primary osteoarthritis, right knee Coding Level of Care Code Procedure Only Diagnoses Osteoarthritis of right knee M17.11 CPT Codes Coding - 27985 Large joint: 90564 - Large joint ([id number])
[2024-11-09 11:33] VITALS: BMI 32.3
--- OUTSIDE RECORDS SUMMARY | 2024-11-09 12:20 | XMS_ITS | Clinical Summary ---
Author Organization [facility] Address [address] [place] [address] Care Team Providers Care Projector Operator Name Role Phone Kyle Shayy Primary Care Provider [phone] Allergies Active Allergy Reactions Criticality Noted Date [...] age to complete this topic Care Teams Projector Operator Relationship Specialty Start Date End Date Shayy Wright [address] [place] [id number] PCP - General Family Medicine 11/18/21
== END 2024-11-09 11:54 | disposition home or self-care (01) ==
LOC: HO.HOS 11:26
PROVIDERS: Visit Provider Orthopaedic Surgery
DX: M17.11 Unilateral primary osteoarthritis, right knee (principal)
CPT/HCPCS: 20610

== ENCOUNTER → 2024-11-09 11:26 | Outpatient (BNVA) | payer MEDICARE, SELFPAY | PROVIDERS: Visit Provider Orthopaedic Surgery | DX: M17.11 Unilateral primary osteoarthritis, right knee (principal) | CPT/HCPCS: 20610; J2003; J7323 ==

== ENCOUNTER 2024-11-16 10:01 | Outpatient (AMB) | payer MEDICARE, SELFPAY ==
[2024-11-16 10:02] VITALS: BMI 32.3
--- NOTE | 2024-11-16 10:02 | MHC.OFFVIS ---
Vital Signs 11/16/24 10:02 Height 5 ft 10 in Weight 225 lb BMI 32.3 Intake Visit Reasons: Inj- Right knee Euflexxa #3 Intake Note: Toribio is a 69 year old male who presents today for his second dose of the Euflexxa gel injection. He states that he has gotten mild relief from the 1st 2 injections. He continues with his home exercise program. Allergies No Known Allergies Allergy (Verified 11/16/24 10:03) Medication List - Last Reconciled 11/16/24 by Satish Huerta MD aspirin 81 mg PO DAILY fexofenadine 180 mg PO DAILY hydrochlorothiazide 25 mg PO DAILY latanoprost 0.005% 1 drp ophthalmic (eye) DAILY lisinopril 5 mg PO DAILY metformin ER 500 mg PO BID simvastatin 20 mg PO DAILY PFSH Surgical History Hx of umbilical hernia repair Hx of left knee surgery Hx of right knee surgery Social History Patient Tobacco Use Status: Never used Tobacco Current occupational status: retired Current occupation: Left hand dominate Physical Exam Vital Signs: BMI result Body Mass Index 32.3 Const Other: Well-nourished well-developed very friendly male awake alert and oriented x3 in no acute distress Extrem Other: Right knee examination shows a minimal effusion, palpable crepitus with range of motion, pain with range of motion, no instability Office Procedures AMB Joint Injection/Aspiration Joint Injection/Aspiration Primary Site: right knee Prep: site was prepped using aseptic technique Injected: 20 mg of (Euflexxa viscosupplementation) and 1% plain lidocaine Procedure: The patient tolerated the procedure well Coding 14932 - Large joint Procedure code (CPT) selection complete Results Reviewed Results Reviewed: X-rays of the patient's right knee taken previously show joint space narrowing, subchondral sclerosis, no acute bony abnormalities Assessment & Plan Assessment & Plan (1) Osteoarthritis of right knee: Code(s): M17.11 - Unilateral primary osteoarthritis, right knee Category: Medical Plan Mr. Salinas presents with right knee pain due to osteoarthritis. The risks and benefits of a 3rd Euflexxa viscosupplementation injection were discussed at length with the patient. The patient wished to proceed. He tolerated the injection well. He will continue with his home exercise program. He will contact me prior to his follow-up appointment in 3 months should any questions or concerns arise. Feel free to call me at any time should questions regarding his orthopedic management arise. Orders: Orders AMB Joint Injection/Aspiration Today M17.11 - Unilateral primary osteoarthritis, right knee Coding Level of Care Code Procedure Only Diagnoses Osteoarthritis of right knee M17.11 CPT Codes Coding - 36702 Large joint: 80015 - Large joint ([id number])
--- OUTSIDE RECORDS SUMMARY | 2024-11-16 10:37 | XMS_ITS | Clinical Summary ---
Author Organization [facility] Address [address] [place] [address] Care Team Providers Care Electronic Components Assembler Name Role Phone Kyle Shayy Primary Care Provider [phone] Allergies Active Allergy Reactions Criticality Noted Date [...] 03/29/2021, 08/29/2020, Additional history exists Influenza Vaccine (Season Ended) 2025 03/13/2020 RSV Adult > 60+ Yrs or (1 - 1-dose 75+ series) 02/28/2028 Hepatitis B Vaccines Aged Out No long er eligible based on patient's age to complete this topic RSV Ped < 20 months Aged Out No longe r eligible based on patient's age to complete this topic Care Teams Electronic Components Assembler Relationship Specialty Start Date End Date Shayy Wright [address] [place] [id number] PCP - General Family Medicine 11/18/21
== END 2024-11-16 10:45 | disposition home or self-care (01) ==
LOC: HO.HOS 10:01
PROVIDERS: Visit Provider Orthopaedic Surgery
DX: M17.11 Unilateral primary osteoarthritis, right knee (principal)
CPT/HCPCS: 20610

== ENCOUNTER → 2024-11-16 10:01 | Outpatient (BNVA) | payer MEDICARE, SELFPAY | PROVIDERS: Visit Provider Orthopaedic Surgery | DX: M17.11 Unilateral primary osteoarthritis, right knee (principal) | CPT/HCPCS: 20610; J2003; J7323 ==

== ENCOUNTER 2025-03-07 13:22 | Outpatient (AMB) | payer MEDICARE, SELFPAY ==
--- NOTE | 2025-03-07 13:29 | A.OFFVIS_ITS ---
Vital Signs 03/07/25 13:31 Height 5 ft 10 in Weight 216 lb BMI 31.0 Intake Visit Reasons: Right knee pain Intake Note: Toribio is a 70 year old male who presents with complaints of progressively worsening right knee pain. The patient describes his pain as sharp and severe in nature. He has undergone arthroscopic surgery on his right knee twice in the past. The most recent arthroscopic procedure gave him minimal relief. He has also had both cortisone injections and Euflexxa viscosupplementation injections which gave him minimal relief. The patient has difficulty walking even short distances because of his right knee pain. At this point his right knee pain is interfering with his activities of daily living and his ability to sleep well through the night. He has tried Tylenol and anti-inflammatory medicines which gave him minimal relief. Allergies No Known Allergies Allergy (Verified 03/07/25 13:31) Medication List - Last Reconciled 03/07/25 by Satish Huerta MD aspirin 81 mg PO DAILY fexofenadine 180 mg PO DAILY hydrochlorothiazide 25 mg PO DAILY latanoprost 0.005% 1 drp ophthalmic (eye) DAILY lisinopril 5 mg PO DAILY metformin ER 500 mg PO BID simvastatin 20 mg PO DAILY PFSH Surgical History Hx of umbilical hernia repair Hx of left knee surgery Hx of right knee surgery Social History Patient Tobacco Use Status: Never used Tobacco Current occupational status: retired Current occupation: Left hand dominate Physical Exam Vital Signs: BMI result Body Mass Index 31.0 Const Other: Well-nourished well-developed very friendly male awake alert and oriented x3 in no acute distress Extrem Other: Right knee examination shows a minimal effusion, palpable crepitus with range of motion, pain with range of motion, range of motion from -3 degrees to 100 degrees, no instability Results Reviewed Results Reviewed: X-rays of the patient's right knee show end-stage degenerative joint disease with grade 4 [id number] arthritis, subchondral sclerosis, osteophyte formation, no acute bony abnormalities Assessment & Plan Assessment & Plan (1) Right knee pain: Code(s): M25.561 - Pain in right knee Category: Medical (2) Osteoarthritis of right knee: Code(s): M17.11 - Unilateral primary osteoarthritis, right knee Category: Medical Plan Mr. Salinas presents with progressively worsening right knee pain due to end- stage degenerative joint disease. I had a lengthy discussion with the patient regarding the treatment options. At this point he appears to have failed cont inued non operative treatments as well as two arthroscopic surgeries. The risks and benefits of right total knee replacement surgery were discussed at length with the patient. The patient wishes to proceed with surgery. He will be scheduled for next available date. I will see him back 1 week prior to his surgery to answer any final questions that he might have. Feel free to call me at any time should questions regarding his orthopedic management arise. I spent 21 minutes in reviewing the patient's records and imaging studies, seeing the patient and documenting in the medical record. Coding Level of Care Code Est Pt Level 3 (59129) Complex EM visit Add On G2211 Diagnoses Right knee pain M25.561 Osteoarthritis of right knee M17.11
[2025-03-07 13:31] VITALS: BMI 31.0
--- OUTSIDE RECORDS SUMMARY | 2025-03-07 16:25 | XMS_ITS | Clinical Summary ---
Author Organization [facility] Address [address] [place] [address] Care Team Providers Care Brand Marketing Coordinator Name Role Phone Kyle Shayy Primary Care Provider [phone] Allergies Active Allergy Reactions Criticality Noted Date [...] 06/18/2022 06/18/2012 COVID-19 Vaccine ( - season) 2025 04/18/2022, 03/29/2021, 08/29/2020, Additional history exists Influenza Vaccine (#1) 2025 03/13/2020 RSV Adult > 60+ Yrs or (1 - 1-dose 75+ series) 02/28/2028 Hepatitis B Vaccines Aged Out No long er eligible based on patient's age to complete this topic RSV Ped < 20 months Aged Out No longe r eligible based on patient's age to complete this topic Care Teams Brand Marketing Coordinator Relationship Specialty Start Date End Date Shayy Wright [address] [place] [id number] PCP - General Family Medicine 11/18/21
== END 2025-03-07 14:05 | disposition home or self-care (01) ==
LOC: HO.HOS 13:23
PROVIDERS: Visit Provider Orthopaedic Surgery
DX: M25.561 Pain in right knee (principal); M17.11 Unilateral primary osteoarthritis, right knee
CPT/HCPCS: 99214; G2211

== ENCOUNTER → 2025-03-07 13:22 | Outpatient (BNVA) | payer MEDICARE, SELFPAY | PROVIDERS: Visit Provider Orthopaedic Surgery | DX: M25.561 Pain in right knee (principal); M17.11 Unilateral primary osteoarthritis, right knee | CPT/HCPCS: 99212 ==

== ENCOUNTER → 2025-05-04 09:49 | Outpatient (BNVA) | payer MEDICARE, SELFPAY | DX: Z01.818 Encounter for other preprocedural examination (principal) ==

== ENCOUNTER → 2025-05-18 07:48 | Outpatient (BNV) | payer MEDICARE, SELFPAY | PROVIDERS: PCP Family Medicine; Visit Provider Radiology Diagnostic Radiology | DX: M17.11 Unilateral primary osteoarthritis, right knee (principal) | CPT/HCPCS: 73562 ==

== ENCOUNTER 2025-05-18 08:06 | Outpatient (AMB) | payer MEDICARE, SELFPAY ==
--- OUTSIDE RECORDS SUMMARY | 2025-05-18 08:16 | XMS_ITS | Clinical Summary ---
Author Organization [facility] Prior to 11/12/24 Address [address] [place] [address] Care Team Providers Care Presiding Judge Name Role Phone Kyle Shayy Primary Care Provider [phone] Allergies Active Allergy Reactions Criticality Noted Date [...] or Tdap) 06/18/2022 06/18/2012 COVID-19 Vaccine ( season) 2025 04/18/2022, 03/29/2021, 08/29/2020, Additional history exists Influenza Vaccine (#1) 2025 03/13/2020 RSV Adult > 60+ Yrs or (1 - 1-dose 75+ series) 02/28/2028 Hepatitis B Vaccines Aged Out No long er eligible based on patient's age to complete this topic RSV Ped < 20 months Aged Out No longe r eligible based on patient's age to complete this topic Care Teams Presiding Judge Relationship Specialty Start Date End Date Shayy Wright [address] [place] [address] PCP - General Family Medicine 11/18/21
--- NOTE | 2025-05-18 08:19 | MHC.OFFVIS ---
Intake Visit Reasons: Pre-Op: R TKA w/ 05/22/25 Intake Note: Toribio is a 70 year old male who presents with complaints of progressively worsening right knee pain. He describes his pain as sharp and severe in nature. His pain has gotten worse over the last few years in spite of continued non operative treatments as well as two arthroscopic surgeries. He has tried Tylenol, anti-inflammatory medicines and physical therapy exercises which aggravated his pain. The patient has difficulty walking even short distances because of his right knee pain. At this point his right knee pain is interfering with his activities of daily living and his ability to sleep well through the night. Allergies No Known Allergies Allergy (Verified 03/07/25 13:31) Medication List - Last Reconciled 05/18/25 by Satish Huerta MD acetaminophen 1,000 mg PO QID PRN aspirin 81 mg PO DAILY fexofenadine 180 mg PO DAILY hydrochlorothiazide 25 mg PO DAILY lisinopril 5 mg PO DAILY metformin ER 500 mg PO BID simvastatin 20 mg PO DAILY vitamin A-vitamin C-vit E-min 1 tab PO DAILY walker Folding front wheeled walker [facility] Medical History Osteoarthritis Diabetes Seasonal allergies HLD (hyperlipidemia) HTN (hypertension) PONV (postoperative nausea and vomiting) Surgical History Hx of colonoscopy Hx of left cataract extraction (03/2025) Hx of umbilical hernia repair (~2004) Hx of left knee surgery Hx of right knee surgery (~2021) Social History Household Members: Spouse Housing: House Are you a primary career services coordinator to a significant other at home: No Do you presently have visiting nurse or other home services: No 75 years or older and lives alone: No Patient Tobacco Use Status: Never used Tobacco Current occupational status: retired Current occupation: Left hand dominate Physical Exam Const Other: Well-nourished well-developed very friendly male awake alert and oriented x3 in no acute distress Extrem Other: Right knee examination shows a minimal effusion, palpable crepitus with range of motion, pain with range of motion, range of motion from -3 degrees to 115 degrees, no instability Results Reviewed Results Reviewed: X-rays of the patient's right knee taken today show end-stage degenerative joint disease with grade 4 oloc-er-xuwv arthritis, subchondral sclerosis, osteophyte formation, no acute bony abnormalities Assessment & Plan Assessment & Plan (1) Osteoarthritis of right knee: Code(s): M17.11 - Unilateral primary osteoarthritis, right knee Category: Medical Plan Mr. Salinas presents with right knee pain due to end-stage degenerative joint disease. I had a lengthy discussion with the patient regarding the treatment options. At this point he has failed continued non operative treatments. The risks and benefits of right total knee replacement surgery were discussed at length with the patient. The patient wishes to proceed with surgery. support services manager will be consulted following his surgery for home physical therapy and nursing. The patient will follow up as instructed. Feel free to call me at any time should questions regarding his orthopedic management arise. I spent 20 minutes in reviewing the patient's records and imaging studies, seeing the patient and documenting in the medical record. Orders: Orders XR knee RT 3V Today M25.561 - Pain in right knee Hemoglobin A1c Today Z01.818 - Encounter for other preprocedural examination Coding Level of Care Code Est Pt Level 3 (39715) Complex visit Add On G2211 Diagnoses Osteoarthritis of right knee M17.11
== END 2025-05-18 08:33 | disposition home or self-care (01) ==
LOC: HO.HOS 08:07
PROVIDERS: Visit Provider Orthopaedic Surgery
DX: M17.11 Unilateral primary osteoarthritis, right knee (principal)
CPT/HCPCS: 99024

== ENCOUNTER 2025-05-18 08:38 | Outpatient (REF) | payer MEDICARE, SELFPAY ==
--- NOTE | ~2025-05-18 | XR_ITS ---
EXAMINATION: XR KNEE, RIGHT CLINICAL INFORMATION: M25.561 - Pain in right knee COMPARISON: September 14, 2024 TECHNIQUE: AP lateral and sunrise views of the right knee. FINDINGS: Joint space narrowing involving mostly the medial compartment. Marginal osteophyte formation posterior patella medial femoral condyle and medial tibial plateau. No soft tissue calcifications. No gross suprapatellar bursa joint effusion. No acute fracture or dislocation. No lytic or blastic lesions. 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 Overall no gross change. Electronically signed by: Zhao Carlson MD 05/18/2025 08:32 AM EST
[2025-05-18 09:22] LABS: Hematocrit 44.5 % (42.0-52.0); Hemoglobin 14.7 g/dl (14.0-18.0); Mean Corpuscular HGB Conc 33.0 g/dl (31.0-36.0); Mean Corpuscular Hemoglobin 30.7 pg (27.0-33.0); Mean Corpuscular Volume 92.9 fL (80.0-98.0); NRBC Abs Auto 0.000 X10*3/uL (0.0-0.012); NRBC Pct Auto 0.0 /100WBC (0.0-0.2); Platelet Count 210 X10*3/uL (160-400); Red Blood Count 4.79 X10*6/uL (4.60-5.80); White Blood Count 6.6 X10*3/uL (4.8-10.8)
[2025-05-18 09:37] LABS: Hemoglobin A1C 129.4958 umol/L
[2025-05-18 09:50] LABS: Anion Gap 12 (12-20); Blood Urea Nitrogen 13 mg/dL (9-16); Calcium 9.4 mg/dL (8.4-10.2); Carbon Dioxide 27 mmol/L (22-29); Chloride 104 mmol/L (96-108); Estimated Glomerular Filt Rate > 60; Potassium 3.9 mmol/L (3.3-5.1); Sodium 139 mmol/L (135-145)
== END 2025-05-18 08:39 | disposition home or self-care (01) ==
LOC: HO.LAB 08:38
PROVIDERS: Physician Assistant; PCP Family Medicine; Visit Provider Orthopaedic Surgery
DX: Z01.818 Encounter for other preprocedural examination (principal); M17.11 Unilateral primary osteoarthritis, right knee; Z13.1 Encounter for screening for diabetes mellitus; Z79.82 Long term (current) use of aspirin
CPT/HCPCS: 36415; 73562; 80048; 83036; 85027

== ENCOUNTER → 2025-05-22 07:30 | Outpatient (BNV) | payer MEDICARE, SELFPAY | PROVIDERS: PCP Family Medicine; Visit Provider Orthopaedic Surgery | DX: I10 Essential (primary) hypertension (principal); E11.9 Type 2 diabetes mellitus without complications; E78.2 Mixed hyperlipidemia; Z96.651 Presence of right artificial knee joint | CPT/HCPCS: 27447; 99024; G0180 ==

== ENCOUNTER 2025-05-22 11:54 | Day surgery (SDC) | payer MEDICARE, SELFPAY ==
--- OUTSIDE RECORDS SUMMARY | 2025-04-12 15:58 | XMS_ITS | Clinical Summary ---
Author Organization [facility] Address [address] [place] [address] Care Team Providers Care Lay Brother Name Role Phone Kyle Shayy Primary Care Provider [phone] Allergies Active Allergy Reactions Criticality Noted Date [...] age to complete this topic Care Teams Lay Brother Relationship Specialty Start Date End Date Shayy Wright [address] [place] [id number] PCP - General Family Medicine 11/18/21
[2025-04-21 09:57] VITALS: BP 138/61; PULSE 64; RESP 16; O2SAT 96; BMI 31.6
--- NOTE | 2025-04-21 10:17 | HO.ANESPROP2 ---
Documented by User: Melissa Loving NP 04/21/25 10:33 HPI - Anesthesia Eval Consult details Narrative: 70yo M for Right Knee Replacement Total, 05/22/25 Medically optimized per [facility] Preop No recent illness No CP/SOB with walking daily ~ 0.5 mile DM2 - Does not check POC, A1C = 6.8% PONV - 1 x post umbilical hernia, none with subsequent GA. Discussed low risk with spinal, propofol, block PMFSH Active Problems Active Problems: All Active Problems Osteoarthritis of right knee (Acute) Lumbar radicular pain (Acute) Tendonitis involving right hip abductors (Acute) Chronic pain syndrome (Acute) Tendinopathy involving hip (Acute) Arthritis of right hip (Acute) Right hip pain (Acute) Neuroforaminal stenosis of lumbar spine (Acute) Low Back Pain (Acute) Right knee pain (Acute) Past Medical History Medical History Osteoarthritis Diabetes Seasonal allergies HLD (hyperlipidemia) HTN (hypertension) PONV (postoperative nausea and vomiting) Family History Family history of problems with anesthesia: No Surgical History Surgical History Hx of colonoscopy Hx of left cataract extraction (03/2025) Hx of umbilical hernia repair (~2004) Hx of left knee surgery Hx of right knee surgery (~2021) History of Problems with Anesthesia: Yes (Mild PONV) Social History Social History Household Members: Spouse Housing: House Are you a primary manager intensive care unit to a significant other at home: No Do you presently have visiting nurse or other home services: No Patient Tobacco Use Status: Never used Tobacco Use of substances other than those prescribed or required for medical reasons: No Have you been hit, kicked, punched, or otherwise hurt by someone within the past year? If so, by whom?: No Advance Directives: No Advance Directives Information Provided: Yes Advance Directives on File: No Current occupational status: retired Current occupation: Left hand dominate Meds Allergies Allergy/AdvReac Type Severity Reaction Status Date / Time No Known Allergies Allergy Verified 05/22/25 06:34 Home Medications ?Medication ?Instructions ?Recorded ?Confirmed ?Last Taken ?Type aspirin 81 mg tablet,delayed 81 mg PO DAILY 06/11/23 05/22/25 05/15/25 History release fexofenadine 180 mg tablet 180 mg PO DAILY 06/11/23 05/22/25 05/21/25 History hydrochlorothiazide 25 mg tablet 25 mg PO DAILY 06/11/23 05/22/25 05/21/25 History lisinopril 5 mg tablet 5 mg PO DAILY 06/11/23 05/22/25 05/21/25 History metformin 500 mg tablet,extended 500 mg PO BID 06/11/23 05/22/25 05/21/25 History release 24 hr simvastatin 20 mg tablet 20 mg PO DAILY 06/11/23 05/22/25 05/21/25 History acetaminophen 500 mg tablet 1,000 mg PO QID PRN Pain 04/21/25 05/22/25 05/21/25 History vitamin A-vitamin C-vit E-min 1 tab PO DAILY 04/21/25 05/22/25 05/15/25 History tablet Exam Height,Weight and Vital Signs: Height 5 ft 10 in Weight 100 kg Last Vital Signs Pulse 64 04/21/25 09:57 Resp 16 04/21/25 09:57 BP 138/61 04/21/25 09:57 Pulse Ox 96 04/21/25 09:57 O2 Del Method Room Air 04/21/25 09:57 Pertinent Lab Results Pertinent Lab Results: Test Name Test Result Date/Time WBC7.6 k/mm303/29/2025 11:35 EDT RBC4.97 m/mm303/29/2025 11:35 EDT Hgb15.1 Gm/dL03/29/2025 11:35 EDT Hct45.5 %03/29/2025 11:35 EDT MCV91.5 ksyueftgjzt86/15/2025 11:35 EDT MCH30.4 pg03/29/2025 11:35 EDT MCHC33.2 Gm/dL03/29/2025 11:35 EDT Platelet Gnzuk931 k/mm303/29/2025 11:35 EDT RDW-SD45.2 /15/2025 11:35 EDT MPV8.6 kljnvktoicn30/15/2025 11:35 EDT Nucleated RBC (Automated)0.0 #/100 WBC'03/29/2025 11:35 EDT Abs. NRBC0.0 k/mm310 11:35 EDT Abs. Neut4.5 k/mm310 11:35 EDT Abs. Lymph1.8 k/mm303/29/2025 11:35 EDT Abs. Mono0.9 k/mm310 11:35 EDT Abs. Eo0.2 k/mm310 11:35 EDT Abs. Baso0.1 k/mm303/29/2025 11:35 EDT Neut %59.7 %03/29/2025 11:35 EDT Lymph %24.4 %03/29/2025 11:35 EDT Tompkins %12.2 %03/29/2025 11:35 EDT Eos %2.6 %03/29/2025 11:35 EDT Baso %0.8 %03/29/2025 11:35 EDT Imm Gran0.3 %03/29/2025 11:35 EDT Abs. Imm Gran0.0 k/mm303/29/2025 11:35 EDT INR1.010 11:35 EDT Protime (PT)11.1 uqerzou1103/29/2025 11:35 EDT APTT25.4 isptlwb6103/29/2025 11:35 EDT Kdhhop876 mmol/L1 11:35 EDT Potassium4.3 mmol/L1 11:35 EDT Mmempwxv702 mmol/L1 11:35 EDT Bicarbonate Level26 mmol/L1 11:35 EDT Anion Gap12 mmol/L1 11:35 EDT Glucose Ebeia789 mg/dL03/29/2025 11:35 EDT Hemoglobin A1C (Monitoring)6.8 %03/29/2025 11:35 EDT BUN13 mg/dL03/29/2025 11:35 EDT Creatinine-Blood0.96 mg/dL03/29/2025 11:35 EDT Estimated GFR Ldajnvkuxx86 ML/MIN/1.73 M203/29/2025 11:35 EDT Calcium9.8 mg/dL03/29/2025 11:35 EDT Narrative Narrative: EKG 03/2025 Ventricular Rate: 58 ?BPM Atrial Rate: 58 ?BPM P-R Interval: 160 ?ms QRS Duration: 104 ?ms Q-T Interval: 412 ?ms QTC Calculation(Bazett): 404 ?ms P Middleton: 13 ?degrees R Middleton: 6 ?degrees T Middleton: 28 ?degrees Sinus bradycardia Incomplete right bundle branch block Borderline ECG When compared with ECG of 05-Jan-2001 08:50, Vent. rate has decreased by ?41 bpm Incomplete right bundle branch block is now Present Confirmed by FANI HOBSON MD ([id number]) on 03/29/2025 11:47:28 AM Airway Mallampati Class: III TM Dist: >3cm Neck ROM: Full Loose/Missing/Broken Teeth: Yes (6-8 crowned) Heart: RRR Lungs: CTAB Assessment and Plan Assessment Anesthesia Assessment: Anesthesia Plan Discussed and PAT Visit Final Anesthetic Review Family History of Problems with Anesthesia: No History of Problems with Anesthesia: Yes (Mild PONV) Documented by User: Lucas Timmons MD 05/22/25 09:23 [facility] Past Medical History Medical History Osteoarthritis Diabetes Seasonal allergies HLD (hyperlipidemia) HTN (hypertension) PONV (postoperative nausea and vomiting) Surgical History Surgical History Hx of colonoscopy Hx of left cataract extraction (03/2025) Hx of umbilical hernia repair (~2004) Hx of left knee surgery Hx of right knee surgery (~2021) Social History Social History Household Members: Spouse Housing: House Are you a primary manager intensive care unit to a significant other at home: No Do you presently have visiting nurse or other home services: No Patient Tobacco Use Status: Never used Tobacco Use of substances other than those prescribed or required for medical reasons: No Have you been hit, kicked, punched, or otherwise hurt by someone within the past year? If so, by whom?: No Advance Directives: No Advance Directives Information Provided: Yes Advance Directives on File: No Current occupational status: retired Current occupation: Left hand dominate Meds Allergies Allergy/AdvReac Type Severity Reaction Status Date / Time No Known Allergies Allergy Verified 05/22/25 06:34 Home Medications ?Medication ?Instructions ?Recorded ?Confirmed ?Last Taken ?Type aspirin 81 mg tablet,delayed 81 mg PO DAILY 06/11/23 05/22/25 05/15/25 History release fexofenadine 180 mg tablet 180 mg PO DAILY 06/11/23 05/22/25 05/21/25 History hydrochlorothiazide 25 mg tablet 25 mg PO DAILY 06/11/23 05/22/25 05/21/25 History lisinopril 5 mg tablet 5 mg PO DAILY 06/11/23 05/22/25 05/21/25 History metformin 500 mg tablet,extended 500 mg PO BID 06/11/23 05/22/25 05/21/25 History release 24 hr simvastatin 20 mg tablet 20 mg PO DAILY 06/11/23 05/22/25 05/21/25 History acetaminophen 500 mg tablet 1,000 mg PO QID PRN Pain 04/21/25 05/22/25 05/21/25 History vitamin A-vitamin C-vit E-min 1 tab PO DAILY 04/21/25 05/22/25 05/15/25 History tablet Exam Exam Date and Time: 05/22/25 Assessment and Plan Final Anesthetic Review NPO: Yes ASA Class: II Final Preanesthetic Review: No Changes in Pt Med Stat, Meds/Allgs Chart Reviewed, Consent Obtained/Reviewed and Anes Risks/Benef Reviewed Patient Risk: Low Procedure Risk: Low Anesthetic Plan Anesthetic Plan: MAC:, Spinal and Regional Block Disposition: Standard PACU
[2025-04-21 12:41] LABS: MRSA Nasal PCR NEGATIVE (Negative); SA Nasal PCR NEGATIVE (Negative)
--- NOTE | 2025-05-19 17:05 | PC.NURSE ---
Pt contacted via telephone at 1706. Pt verbalizes understanding that his surgical time has been changed to 0730 and that he should arrive at 0600.
[2025-05-22] VITALS (10 sets, daily range): BP systolic 117–132; BP diastolic 51–72; PULSE 55–88; RESP 14–18; TEMP -12.7–37.2; O2SAT 92–97; BMI 31.1
[2025-05-22] MEDS: Lactated Ringers 1,000 ML 100 ML IVCONT ×3 (07:17→23:00)
[2025-05-22 08:37] LABS: Glucose, Whole Blood 159 mg/dL (60-115)
--- NOTE | 2025-05-22 10:51 | P.BOP_ITS ---
Brief Operative Note Date of Service: 05/22/25 Pre-op diagnosis: Right knee degenerative joint disease Post-op diagnosis: same Procedure: Right total knee arthroplasty Implants: Arlee Triathlon cemented posterior stabilized total knee arthroplasty with a femoral component size 5 right, tibial component size 6, polyethylene liner size 6 with 13 mm of thickness, an asymmetric patellar component size 32 with 10 mm of thickness Surgeon: Satish Huerta MD Anesthesia: regional and spinal Was an Licensed Journeyman Electrician used for this Procedure?: Yes Licensed Journeyman Electrician: Camille Chu Estimated blood loss (mL): 200 Pathology: other (Bony fragments from the right femur, tibia and patella) Condition: stable Disposition: PACU
--- NOTE | 2025-05-22 10:53 | P.OP_ITS ---
Operative Note Operative Note Date of Service: 05/22/25 Narrative: After the patient was identified as Toribio Salinas and his right knee was initialed by myself the patient was brought to the holding area where a right leg nerve block was performed by the anesthesiologist in routine fashion. The patient was then brought to the operating room where conscious sedation and spinal anesthesia were performed by the anesthesiologist in routine fashion. Because of the patient's diabetes (hemoglobin A1c 6.8) he was given both IV Ancef and IV vancomycin preoperatively for infection prophylaxis. The patient's right lower extremity was prepped and draped in sterile fashion. A formal time-out was completed. The patient's right knee was placed onto a small bump to produce 30? of knee flexion during exposure. A #10 scalpel blade was used to make a midline incision extending 1 handbreadth proximal and distal to the patella. A second #10 scalpel blade was used to dissect the subcutaneous tissues down to the extensor mechanism. The subcutaneous flaps were maintained as thick as possible. A medial parapatellar arthrotomy was then performed using a #10 scalpel blade. The arthrotomy was begun just medial to the patellar tendon. The arthrotomy was continued 1 cm medial to the patella and then 5 mm into the medial aspect of the quadriceps tendon. The infrapatellar fat pad was partially excised to help with exposure. The soft tissue retinaculum was raised one-half of the way around the medial aspect of the proximal tibia. The patella was everted and the knee was flexed to 90?. There was no injury to the patellar tendon or its insertion onto the tibial tubercle. A drill bit was introduced into the distal aspect of the femur with a starting point 1 cm anterior to the origin of the posterior cruciate ligament. The intramedullary alignment gayle was put into place. The distal alignment guide was set for a 5 degree valgus cut. The distal cutting block was put into place and we held it with 4 pins. The intramedullary alignment gayle was removed. Soft tissues were retracted in the distal femoral cut was made using a sagittal saw. The distal aspect of the femur measured to be a size 5 right component. Two drill holes were placed into the distal aspect of the femur marking 3? of external rotation. The distal cutting block was impacted into place and we held it with 2 pins. Soft tissues were retracted and the 4 distal femoral cuts were made using a sagittal saw. Final notching and drilling of the distal aspect of the femur were performed in routine fashion. The trial femoral component was impacted into place. The knee was taken through a full range of motion. The patella tracked well. The patella was everted and the knee was flexed to 90?. The trial component was removed and our attention was directed to the proximal tibia. The medial and lateral menisci were removed using a #10 scalpel blade. A small rim of the medial meniscus was left intact to help prevent injury to the medial collateral ligament. A drill bit was then introduced into the proximal tibia with a starting point midway from medial to lateral and one-third of the way posteriorly. The intramedullary alignment gayle was put into place. The proximal tibial cutting guide was placed over the alignment gayle in line with the 2nd toe. The guide was held in place using 3 pins. The intramedullary alignment gayle was removed. Soft tissues were retracted and the proximal tibial cut was made using a sagittal saw. The proximal tibia measured to be a size 6 component. The tibial tray was put into place with a 13 mm liner. The femoral component was impacted into place. The knee was taken through a full range of motion. There was full flexion and full extension. There was no instability with varus or valgus stress testing with the knee in flexion or extension. The patella tracked well with no medially directed force. The rotation of the tibial tray was marked using electrocautery with the knee in extension. The patella was everted and the knee was flexed to 90?. All trial components were removed. The tibial tray was placed onto the proximal tibia in line with the electrocautery shaka. The tray was held in place using 3 pins. Final broaching of the proximal tibia was performed in routine fashion. The trial liner and trial femoral component were put into place. The knee was brought into extension and our attention was directed to the patella. The patella measured 25 mm in thickness. The patellar resection guide was set for a 10 mm resection. Soft tissues were retracted and the patella cut was made using a sagittal saw. The remaining patella measured 15 mm in thickness. The undersurface of the patella was measured to be a size 32 asymmetric component. Three drill holes were placed into the undersurface of the patella in routine fashion. The trial component was put into place. The knee was taken through a full range of motion. The patella tracked well. The patella was everted and the knee was flexed to 90?. All trial components were removed. The knee was once again brought into extension and placed onto a small bump. The knee joint was irrigated with copious amounts of normal saline solution via pulse lavage while the cement was mixed. The patella was everted and the knee was flexed to 90?. A small amount of cement was placed along the posterior aspects of the tibial and femoral components. Cement was then pressurized into the proximal tibia. The tibial component was impacted into place. Any excess cement was removed. The polyethylene liner was then impacted into place. Cement was then pressurized into the distal aspect of the femur. A small amount of cement was placed into the intramedullary canal to help reduce bleeding. The femoral component was impacted into place. Any excess cement was removed. The knee was then brought into extension. Cement was pressurized into the undersurface of the patella. The patellar component was put into place and was held with a patella clamp. Any excess cement was removed. Once the cement had hardened the patellar clamp was removed. The knee was taken through a full range of motion. There was full flexion and extension. There was no instability with varus or valgus stress testing with the knee in flexion or extension. The patella tracked well with no medially directed force. The knee joint was irrigated with copious amounts of normal saline solution via pulse lavage. Any significant bleeding vessels were coagulated. The patient's right knee was placed onto a small bump. The arthrotomy was closed with #2 Ethibond [id number] interrupted suture as well as #1 Vicryl [id number] interrupted suture. The wound was once again irrigated. The subcutaneous tissues were closed with 0 Vicryl and 2-0 Vicryl interrupted sutures. The skin was closed with skin sabina. Dry sterile dressing and Nile bandages were placed over the patient's right knee. The patient was awake and alert. The patient was transferred to the recovery room in stable condition. Justification for PA Process Coordinator: The complexity of this total knee arthroplasty, involving significant bony deformity and soft tissue releases, necessitates the assistance of a qualified surgical scrub tech for optimal surgical exposure, hemostasis and efficient execution of the procedure.
[2025-05-22 12:53] LABS: Glucose, Whole Blood 202 mg/dL (60-115)
[2025-05-22] MEDS: oxyCODONE HCl ER 10 MG TAB.ER.12H PO ×2 (13:01→21:08)
--- NOTE | 2025-05-22 14:27 | PHA.MEDREC ---
Pharmacy Consult ? Medication Reconciliation Pharmacy has reviewed the medication reconciliation completed by nursing.
[2025-05-22] MEDS: oxyCODONE HCl Immed Release 5 MG TABLET PO (17:46)
--- NOTE | 2025-05-22 19:06 | P.CONHOSP_ITS ---
History of Present Illness Data of Consult Service Date: 05/22/25 Requesting physician: Satish Huerta Primary Care Provider: Ramirez Rosario MD HPI Reason for consult: Medical mgmt s/p RTKA Pt is a 70 yo male with PMH HTN, HLD, NIDDM on metformin, Allergic Rhinitis, OA, umb hernia repair X2, orthoscopic procedures B knees is s/p R TKA with orthopedics. Hospitalist consulted for medical management. Pt offered no specific concerns regarding his current medical needs. Pt has been OOB and able to void since surgery earlier this morning. Pt states pain is well controlled regarding R knee. Pt is hopeful to be discharged home tomorrow. Pt lives with his spouse and has a daughter who is a physical therapist. Pt is considering attending PT in [place] where his daughter is employed but is also realistic about the distance and will consider PT locally as well. Prior to surgery, pt has been independent with ADL's and IADLs but ambulation was more painful and difficult, prompting need for the knee surgery. Review of Systems Review of Systems: Pt denies chest pain, SOB at rest or with exertion, low back pain, difficulty urinating, JACOBO or visual changes. Pt is not having any abdominal pain, N/V, or issues with constipation. Pt denies hx of smoking, regulatr alcoohol use or marijuana use. Yes all other systems are reviewed and are negative [facility] Medical History Osteoarthritis Diabetes Seasonal allergies HLD (hyperlipidemia) HTN (hypertension) PONV (postoperative nausea and vomiting) Cognitive capacity: A/O X3 Functional capacity: uses cane/walker (s/p knee replacement ) Surgical History Hx of colonoscopy Hx of left cataract extraction (03/2025) Hx of umbilical hernia repair (~2004) Hx of left knee surgery Hx of right knee surgery (~2021) Social History Household Members: Spouse Housing: House Are you a primary medicare nurse to a significant other at home: No Do you presently have visiting nurse or other home services: No Patient Tobacco Use Status: Never used Tobacco Smoked in Last 30 Days: No Patient Interested in Nicotine Replacement: No Patient Given Instructions on How to Stop Smoking: No Second Hand Smoke Exposure: No Use of substances other than those prescribed or required for medical reasons: No Currently Displaying Signs/Symptoms of Drug Intoxication Withdrawal: No Have you been hit, kicked, punched, or otherwise hurt by someone within the past year? If so, by whom?: No Do you feel safe in your current relationship?: Yes Is there a partner from a previous relationship who is making you feel unsafe now?: No Are you made to feel afraid or neglected: No Advance Directives: No Advance Directives Information Provided: Yes Advance Directives on File: No Do you have a plan to hurt others: No Plan Recently lost weight without trying: No Eating poorly because of decreased appetite: No Nutrition Risks: No Nutritional Risk Poor oral hygiene: No Current occupational status: retired Current occupation: Left hand dominate Meds Allergies Allergy/AdvReac Type Severity Reaction Status Date / Time No Known Allergies Allergy Verified 05/22/25 06:34 Active Medications: Current Medications Acetaminophen (Acetaminophen 325 Mg Tablet) 650 mg PO Q6H PRN PRN Reason: Pain, Mild 1-3,fever,headache Aspirin (Aspirin 325 Mg Tablet) 325 mg PO BID ON LICENSE OF [facility] Last Admin: 05/22/25 17:46 Dose: 325 mg Atorvastatin Calcium (Atorvastatin Calcium 10 Mg Tablet) 10 mg PO BEDTIME ON LICENSE OF [facility] Calcium Carbonate (Calcium Carbonate 750 Mg Tab.Chew) 750 mg PO Q4H PRN PRN Reason: Heartburn Celecoxib (Celecoxib 200 Mg Capsule) 200 mg PO BID ON LICENSE OF [facility] Last Admin: 05/22/25 13:01 Dose: 200 mg Docusate Sodium (Docusate Sodium 100 Mg Capsule) 100 mg PO BID ON LICENSE OF [facility] Last Admin: 05/22/25 13:02 Dose: 100 mg Gabapentin (Gabapentin 100 Mg Capsule) 100 mg PO BEDTIME ON LICENSE OF [facility] Hydrochlorothiazide (Hydrochlorothiazide 25 Mg Tablet) 25 mg PO DAILY ON LICENSE OF [facility]; Protocol Last Admin: 05/22/25 13:02 Dose: 25 mg Hydromorphone HCl (Hydromorphone Hcl 1 Mg/Ml Syringe) 0.25 mg IVPUSH Q4H PRN; Protocol PRN Reason: Pain, Severe (Pain Scale 7-10) Lactated Ringer's (Lr) 500 mls @ 20 mls/hr IVCONT .Q24H ON LICENSE OF [facility] Last Admin: 05/22/25 12:39 Dose: Not Given Cefazolin Sodium/Dextrose (Ancef) 2 gm in 50 mls @ 100 mls/hr IV Q8H ON LICENSE OF [facility] Stop: 05/23/25 00:01 Last Infusion: 05/22/25 15:23 Dose: Infused Lactated Ringer's (Lr) 1,000 mls @ 100 mls/hr IVCONT .Q10H ON LICENSE OF [facility] Last Admin: 05/22/25 13:01 Dose: 100 mls/hr Vancomycin HCl 1,500 mg/ (Sodium Chloride) 500 mls @ 333.333 mls/hr IV ONCE ONE Stop: 05/22/25 20:29 Last Admin: 05/22/25 18:57 Dose: 333.33 mls/hr Lisinopril (Lisinopril 5 Mg Tablet) 5 mg PO DAILY ON LICENSE OF [facility]; Protocol Last Admin: 05/22/25 13:38 Dose: 5 mg Loratadine (Loratadine 10 Mg Tablet) 10 mg PO DAILY ON LICENSE OF [facility] Last Admin: 05/22/25 13:38 Dose: 10 mg Magnesium Hydroxide (Milk Of Magnesia 30 Ml Oral.Susp) 30 ml PO DAILY PRN PRN Reason: Constipation Melatonin (Melatonin 3 Mg Tablet) 6 mg PO BEDTIME PRN PRN Reason: Insomnia Metformin HCl (Metformin Hcl Er 500 Mg Tab.Er.24h) 500 mg PO BID ON LICENSE OF [facility] Last Admin: 05/22/25 13:39 Dose: 500 mg Methocarbamol (Methocarbamol 500 Mg Tablet) 500 mg PO TID ON LICENSE OF [facility] Naloxone HCl (Naloxone Hcl 0.4 Mg/Ml Vial) 0.04 mg IVPUSH Q5M PRN PRN Reason: Excessive sedation or RR < 8 Ondansetron HCl (Ondansetron Hcl 4 Mg/2 Ml Vial) 4 mg IVPUSH Q8H PRN PRN Reason: Nausea and Vomiting Oxycodone HCl (Oxycodone Hcl Immed Release 5 Mg Tablet) 5 mg PO Q4H PRN PRN Reason: Pain, Moderate(Pain Scale 4-6) Last Admin: 05/22/25 17:46 Dose: 5 mg Oxycodone HCl (Oxycodone Hcl Er 10 Mg Tab.Er.12h) 10 mg PO BID ON LICENSE OF [facility] Last Admin: 05/22/25 13:01 Dose: 10 mg Sodium Chloride (0.9 % Sodium Chloride Flush 3 Ml Syringe) 3 ml IVFLUSH QSHIFT VALERIO Last Admin: 05/22/25 15:24 Dose: Not Given Home Medications ?Medication ?Instructions ?Recorded ?Confirmed ?Last Taken ?Type aspirin 81 mg tablet,delayed 81 mg PO DAILY 06/11/23 1 07/23/24 05/15/25 History release fexofenadine 180 mg tablet 180 mg PO DAILY 06/11/2305/21/25 History hydrochlorothiazide 25 mg tablet 25 mg PO DAILY 05/22/25 05/21/25 History lisinopril 5 mg tablet 5 mg PO DAILY 06/11/2305/2205/21/25 History metformin 500 mg tablet,extended 500 mg PO BID 3 05/22/25 05/21/25 History release 24 hr simvastatin 20 mg tablet 20 mg PO DAILY 06/11/2302/0605/21/25 History acetaminophen 500 mg tablet 1,000 mg PO QID PRN Pain 1 06/21/24 05/22/25 05/21/25 History vitamin A-vitamin C-vit E-min 1 tab PO DAILY 04/21/25 05/22/25 05/15/25 History tablet Physical Exam Vital Signs and Narrative: Vital Signs: Last Vital Signs Temp 98.3 F 05/22/25 15:29 Pulse 71 05/22/25 15:29 Resp 18 05/22/25 15:29 BP 124/59 L 05/22/25 15:29 Pulse Ox 92 05/22/25 15:29 O2 Del Method Room Air 05/22/25 15:29 BMI result Body Mass Index 31.1 Pt A/O X3, in NAD Neuro: CN II-XII intact HEENT: glasses on, PERRLA, EOM intact, sclera non icteric, conjuntiva pink Cardiac: S1S2 RRR Lungs: CTA B using IS correctly ABD: soft, NT EXT: BLE pulses intact, warm, dressing clean and dry RLE Psych: mood calm, insight and judgement intact Results Labs Labs: Laboratory Results - last 24 hr 05/22/25 05/22/25 06:48 12:47 POC Glucose 159 H 202 H Assessment and Plan (1) HTN (hypertension): Qualifiers: Hypertension type: primary hypertension Qualified Code(s): I10 - Essential (primary) hypertension Status: Acute (2) Diabetes: Qualifiers: Diabetes mellitus complication status: without complication Diabetes mellitus terminal operations manager insulin use: without terminal operations manager use Diabetes mellitus type: type 2 Qualified Code(s): E11.9 - Type 2 diabetes mellitus without complications Status: Acute (3) HLD (hyperlipidemia): Qualifiers: Hyperlipidemia type: mixed hyperlipidemia Qualified Code(s): E78.2 - Mixed hyperlipidemia Status: Acute Plan Pt is a 70 yo male with PMH HTN, HLD, NIDDM on metformin, Allergic Rhinits, OA, umb hernia repair X2, orthoscopic procedures B knees is s/p R TKA with orthopedics. Hospitalist consulted for medical management. Currently, pt has no specific medical concerns. Medical management discussed below: S/P R TKA Mgmt per orthopedics No issues with voiding Pain well controlled HTN Pt can continue HCTZ and Lisinopril as BP is stable and renal fx, Ca are WNL Low Na diet HLD Pt can continue statin, cardiac diet NIDDM II Pt can continue metformin Last A1c 6.8 No indicaton for SSI currently, likely BG will trend down post operatively Allergic Rhinitis Fexofenadine used at home Asymptomaitc Hospitalist plans to sign off at this time. Thank you for the consultation and please reach out with any questions or concerns.
[2025-05-23 04:00] VITALS: BP 128/65; PULSE 79; RESP 18; TEMP 36.7; O2SAT 96
[2025-05-23 06:31] LABS: MANUAL DIFF FLAG NO
[2025-05-23 06:40] LABS: Hematocrit 37.4 % (42.0-52.0); Hemoglobin 12.6 g/dl (14.0-18.0); Imm Gran Abs Auto 0.02 X10*3/uL (0.00-0.03); Imm Gran Pct Auto 0.2 % (0.0-0.4); Lymphocytes Absolute Auto 1.4 X10*3/uL (1.2-4.9); Mean Corpuscular HGB Conc 33.7 g/dl (31.0-36.0); Mean Corpuscular Hemoglobin 31.1 pg (27.0-33.0); Mean Corpuscular Volume 92.3 fL (80.0-98.0); NRBC Abs Auto 0.000 X10*3/uL (0.0-0.012); NRBC Pct Auto 0.0 /100WBC (0.0-0.2); Platelet Count 180 X10*3/uL (160-400); Red Blood Count 4.05 X10*6/uL (4.60-5.80); White Blood Count 8.7 X10*3/uL (4.8-10.8)
[2025-05-23 06:59] LABS: Anion Gap 12 (12-20); Blood Urea Nitrogen 19 mg/dL (9-16); Calcium 8.5 mg/dL (8.4-10.2); Carbon Dioxide 27 mmol/L (22-29); Chloride 102 mmol/L (96-108); Creatinine Clr Calc Pharmacy 76.2; Estimated Glomerular Filt Rate > 60; Potassium 3.8 mmol/L (3.3-5.1); Sodium 137 mmol/L (135-145)
[2025-05-23 07:12] VITALS: BP 135/63; PULSE 69; RESP 16; TEMP 36.7; O2SAT 92
[2025-05-23 07:41] LABS: Glucose, Whole Blood 153 mg/dL (60-115)
[2025-05-23] MEDS: oxyCODONE HCl ER 10 MG TAB.ER.12H PO (07:59)
[2025-05-23] MEDS: 0.9 % Sodium Chloride Flush 3 ML SYRINGE IVFLUSH (08:00)
--- NOTE | 2025-05-23 08:13 | HO.POSTANES ---
Post Anesthesia Evaluation Post Anesthesia Evaluation Date of Service: 05/23/25 Vital Signs: Vital Signs Temp Pulse Resp BP Pulse Ox O2 Del Method 05/23/25 07:12 98.1 F 69 16 135/63 92 Room Air 05/23/25 04:00 98.1 F 79 18 128/65 96 Room Air Anesthesia: Spinal Mental Status: Awake Pain Control: Satisfactory Nausea/Vomiting: None Hydration: Adequate Anesthesia-Related Issues: No Anes. Related Issues
--- NOTE | 2025-05-23 08:35 | P.DS_ITS ---
DS: Providers Provider Date of Service: 05/23/25 Date of discharge: 05/23/25 Primary care physician: Ramirez Rosario MD Consults: 05/22/25 12:34 Consult to Case Management Routine Comment: s/p RTKA - home with services Consult to Hospitalist Routine Comment: Consulting Provider: [facility] Hospitalists Reason For Exam: Routine medical management DS: Diagnosis Discharge Diagnosis (1) HTN (hypertension): Status: Acute (2) Diabetes: Status: Acute (3) HLD (hyperlipidemia): Status: Acute (4) Status post total right knee replacement: Status: Acute DS: Summary Hospital Course Hospital Course: The patient underwent a successful right total knee arthroplasty, they were transferred to PACU and then to the floor to recover. During their stay, their vitals were stable, afebrile at 98.1. Labs were unremarkable, H/H 12.6/37.4. POD0 they were started on Aspirin 325mg po bid for DVT ppx, they also received Physical Therapy services twice a day. Prior to discharge, their dressing was changed, incision clean dry and intact, new Aquacel dressing applied and the plan was to be discharged home with VNA services. Time Attestation Discharge Coordination Time (in mins): 30 Quality: Safe Use of Opioids Does Pt have an Active Cancer Diagnosis on the Problem List?: No Quality: Stroke Does the patient have a stroke diagnosis?: No Physical Exam Vital Signs: Vital Signs: Last Vital Signs Temp 98.1 F 05/23/25 07:12 Pulse 69 05/23/25 07:12 Resp 16 05/23/25 07:12 BP 135/63 05/23/25 07:12 Pulse Ox 92 05/23/25 07:12 O2 Del Method Room Air 05/23/25 07:12 BMI result Body Mass Index 31.1 Const: General: cooperative, healthy appearing and no acute distress Resp: Effort & Inspection: normal respiratory effort and able to speak in complete sentences Extrem: Other: right knee dressing is c/d/i. Able to dorsi/plantar flex. Calf is supple and nontender. Sensation intact. Pedal pulse intact. Psych: Appearance: grossly normal Mental Status: mental status grossly n ormal Attitude: cooperative DS: Data Data Completed and Pending Pending studies at discharge: Pending at discharge 05/22/25 08:55 Surgical [PTH] Routine Labs on day of discharge: Laboratory Results - last 24 hr 05/22/25 05/22/25 05/23/25 06:48 12:47 06:24 WBC 8.7 RBC 4.05 L Hgb 12.6 L Hct 37.4 L MCV 92.3 MCH 31.1 MCHC 33.7 RDW 13.7 Plt Count 180 MPV 8.5 L Immature Gran % (Auto) 0.2 Neut % (Auto) 70.3 Lymph % (Auto) 15.7 L Braxton % (Auto) 13.6 H Eos % (Auto) 0.0 Baso % (Auto) 0.2 Lymph # (Auto) 1.4 Braxton # (Auto) 1.2 Eos # (Auto) 0.0 Baso # (Auto) 0.0 Abs Immat Gran (auto) 0.02 Absolute Neuts (auto) 6.1 Absolute Nucleated RBC 0.000 Nucleated RBC % (auto) 0.0 Sodium 137 Potassium 3.8 Chloride 102 Carbon Dioxide 27 Anion Gap 12 BUN 19 H Creatinine 1.03 Estim Creat Clear Calc 76.2 Estimated GFR > 60 POC Glucose 159 H 202 H Fasting Glucose 161 H Calcium 8.5 D 05/23/25 07:14 WBC RBC Hgb Hct MCV MCH MCHC RDW Plt Count MPV Immature Gran % (Auto) Neut % (Auto) Lymph % (Auto) Braxton % (Auto) Eos % (Auto) Baso % (Auto) Lymph # (Auto) Braxton # (Auto) Eos # (Auto) Baso # (Auto) Abs Immat Gran (auto) Absolute Neuts (auto) Absolute Nucleated RBC Nucleated RBC % (auto) Sodium Potassium Chloride Carbon Dioxide Anion Gap BUN Creatinine Estim Creat Clear Calc Estimated GFR POC Glucose 153 H Fasting Glucose Calcium Discharge Plan Discharge Patient Disposition: Home, Self-Care Referrals: Satish Huerta MD [Physician, Orthopedics] - 06/13/25 1:45 pm Discharge Medications: New celecoxib 200 mg Capsule 200 mg PO BID 30 Days Qty: 60 0RF methocarbamol 500 mg Tablet 500 mg PO TID 7 Days Qty: 21 0RF acetaminophen 325 mg Tablet 650 mg PO Q6H PRN (Reason: Pain, Mild 1-3,Fever,Headache) 30 Days Qty: 240 0RF aspirin 325 mg Tablet 325 mg PO BID 42 Days Qty: 84 0RF docusate sodium 100 mg Capsule 100 mg PO BID 30 Days Qty: 60 0RF gabapentin 100 mg Capsule 100 mg PO BEDTIME 7 Days Qty: 7 0RF oxycodone 5 mg Tablet 5 mg PO Q4H PRN (Reason: Pain, Moderate(Pain Scale 4-6)) 7 Days Qty: 42 0RF Rx Instructions: Partial Fill upon patient request. Continued (DME) walker Misc See Rx Instructions .ROUTE .MEDSUPPLY Qty: 1 0RF Rx Instructions: Folding front wheeled walker acetaminophen 500 mg Tablet 1,000 mg PO QID PRN (Reason: Pain) vitamin A-vitamin C-vit E-min Tablet 1 tab PO DAILY hydrochlorothiazide 25 mg tablet 25 mg PO DAILY lisinopril 5 mg tablet 5 mg PO DAILY metformin 500 mg tablet extended release 24 hr 500 mg PO BID simvastatin 20 mg tablet 20 mg PO DAILY fexofenadine 180 mg tablet 180 mg PO DAILY Held aspirin 81 mg tablet,delayed release (DR/EC) 81 mg PO DAILY Hold Instructions: Resume on 07/05/25. Discharge Orders: Discharge Order (Routine); Ordered 05/23/25 Ordered By: Camille Chu Diet: Advance to usual diet Activity on Discharge: Use cane or walker Activity Restrictions/Additional Instructions: Physical Therapy for ROM 0-120, quad strength, gait training. Use walker for ambulation Limit stair climbing No shower or tub bath No driving for 6 weeks Continue anticoagulant Keep Aquacel dressing clean, dry and intact. Follow up with orthopedics in 2 weeks -Bandage/Incision Site Care: -Ice 20mins at a time -Make sure you use a towel or cloth on your skin as a barrier -DO NOT remove the bandage -Keep Bandage clean, dry and intact -Do not get the bandage wet: -No tub bath, pools or hot tubs -If there are any concerns regarding the bandage please call orthopedics: [phone] -Knee Precautions: -Refrain from putting pillows under the knee -Keep leg straight while resting the knee -Avoid low chairs and deep couches -Use supportive shoes with nonslip soles -Physical Therapy: -Patient is WBAT with the use of a walker -Range of Motion: 0-120 degrees. -Strengthening: Quadriceps and hip muscles -Walking: Gait training and gradually increasing distance with walker -Ankle pumps and incentive spirometry to limit the risk of blood clot -Diet: -Resume regular diet as tolerated. -Drink plenty of fluids and eat a high-fiber foods to avoid constipation -This is a common side effect of pain medication) -Take stool softeners as prescribed -Blood Clot Prevention: -Take the prescribed blood thinner as directed for 6 weeks -Perform ankle pumps and walk frequently with the walker and assistance if needed -Report calf pain, swelling, or shortness of breath immediately Print Language: [place]ralt[place]
--- NOTE | 2025-05-23 08:37 | P.F2F_ITS ---
Service Date Service Date: 05/23/25 Encounter Date of encounter: 05/23/25 Reasons for Services Signs and symptoms assessed: s/p right total knee arthroplasty. Pt. is considered homebound due to recent surgery. Unable to drive, poor balance, poor gait mechanics. Reason for physical therapy: home safety and mobility, therapeutic exercises, restore joint function, gait/transfer training and ADL training Homebound: Leaving the home is medically contraindicated at this time without the asist of a device and/or another person due th the listed conditions above and below. Reason homebound: unsteady gait / fall risk, leg weakness, pain with ambulation, pain with transfers, poor balance / fall risk and unable to drive Certification: Based on the above findings, I certify that this patient is confined to the home and needs intermittent halfway care, physical therapy and/or speech therapy, or continues to need occupational therapy. The patient is under my care, and I have initiated the establishment of the plan of care. The patient will be followed by a physician who will periodically review the plan of care. Time Spent With Patient Time: Total time managing care of this patient today ____ minutes.
--- NOTE | 2025-05-23 09:21 | MHC.CM.PN ---
pt lives with had no previous services has own ride home willbe going home w/vna
--- NOTE | 2025-05-23 09:33 | MHC.CM.PN ---
pt dcd home with kavon
--- NOTE | 2025-05-23 09:35 | PC.NURSE ---
Discharge instructions given pt verbalized understanding. IV removed.
== END 2025-05-23 09:38 | disposition home health service (06) ==
LOC: HO.SSS 11:54 → HO.S3 11:54
PROVIDERS: Physician Assistant; PCP Family Medicine; Visit Provider Orthopaedic Surgery
PROC: (CPT 27447; principal; 2025-05-22 07:30)
DX: M17.11 Unilateral primary osteoarthritis, right knee (principal); M25.561 Pain in right knee; R26.2 Difficulty in walking, not elsewhere classified; I10 Essential (primary) hypertension; E78.2 Mixed hyperlipidemia; E11.9 Type 2 diabetes mellitus without complications; J30.2 Other seasonal allergic rhinitis; Z79.84 Long term (current) use of oral hypoglycemic drugs; Z79.899 Other long term (current) drug therapy; Z79.82 Long term (current) use of aspirin; Z98.890 Other specified postprocedural states
CPT/HCPCS: 27447; 36415; 80048; 82947; 85025; 86850; 86900; 86901; 87640; 87641; 88305; 88311; 97110; 97162; A6260; C1776; J0131; J0690; J1100; J2003; J2151; J2250; J2371; J2405; J2704; J2795; J3010; J3374; J7120

== ENCOUNTER → 2025-05-22 11:54 | Outpatient (BNV) | payer MEDICARE, SELFPAY | PROVIDERS: PCP Family Medicine; Visit Provider Nurse Practitioner Family | DX: I10 Essential (primary) hypertension (principal); E11.9 Type 2 diabetes mellitus without complications; E78.2 Mixed hyperlipidemia | CPT/HCPCS: 99223 ==

== ENCOUNTER 2025-06-12 09:38 | Outpatient (REF) | payer MEDICARE, SELFPAY ==
--- NOTE | ~2025-06-12 | XR_ITS ---
EXAMINATION: XR KNEE 3 VIEWS RIGHT HISTORY: Z96.651 - Presence of right artificial knee joint COMPARISON: Comparison is made with the prior examination dated 05/18/2025. FINDINGS: Three views of the right knee are submitted. The patient is status post total knee arthroplasty. The orthopedic elements are in anatomic alignment. There is no radiographic evidence of loosening. There is no fracture or dislocation. There is a small joint effusion. XR/XR knee RT 3V IMPRESSION: Status post right total knee arthroplasty. Electronically signed by: Eliseo Holloway MD 06/12/2025 02:21 PM EST
--- OUTSIDE RECORDS SUMMARY | 2025-06-12 10:16 | XMS_ITS | Clinical Summary ---
Author Organization [facility] Prior to 11/12/24 Address [address] [place] [address] Care Team Providers Care Senior Account Executive Name Role Phone Kyle Shayy Primary Care Provider [phone] Allergies Active Allergy Reactions Criticality Noted Date [...] age to complete this topic Care Teams Senior Account Executive Relationship Specialty Start Date End Date Shayy Wright [address] [place] [address] PCP - General Family Medicine 11/18/21
== END 2025-06-12 09:39 | disposition home or self-care (01) ==
LOC: HO.HOSX 09:38
PROVIDERS: Visit Provider Orthopaedic Surgery
DX: Z47.1 Aftercare following joint replacement surgery (principal); Z96.651 Presence of right artificial knee joint
CPT/HCPCS: 73562; 99212

== ENCOUNTER 2025-06-12 13:31 | Outpatient (AMB) | payer MEDICARE, SELFPAY ==
--- NOTE | 2025-06-12 13:37 | MHC.OFFVIS ---
Intake Visit Reasons: 1stPO: R TKA w/ 05/22/25 Intake Note: Toribio is a 70 year old male who presents with complaints of mild to moderate discomfort in his right knee after undergoing right total knee replacement surgery on 05/22/2025. He continues with his physical therapy exercises. He is due to start outpatient therapy at [facility] in [place] next week. He is no longer taking oxycodone for his discomfort. He denies any fevers or chills. Allergies No Known Allergies Allergy (Verified 06/12/25 13:52) Medication List - Last Reconciled 06/12/25 by Satish Huerta MD acetaminophen 1,000 mg PO QID PRN acetaminophen 650 mg (2 x 325 mg) PO Q6H PRN 30 days aspirin 325 mg PO BID 42 days aspirin 81 mg PO DAILY Held on 05/23/25. Instructions: Resume on 07/05/25. celecoxib 200 mg PO BID 30 days docusate sodium 100 mg PO BID 30 days fexofenadine 180 mg PO DAILY gabapentin 100 mg PO BEDTIME 7 days hydrochlorothiazide 25 mg PO DAILY lisinopril 5 mg PO DAILY metformin ER 500 mg PO BID methocarbamol 500 mg PO TID 7 days simvastatin 20 mg PO DAILY vitamin A-vitamin C-vit E-min 1 tab PO DAILY walker Folding front wheeled walker [facility] Medical History Osteoarthritis Diabetes Seasonal allergies HLD (hyperlipidemia) HTN (hypertension) PONV (postoperative nausea and vomiting) Surgical History Hx of colonoscopy Hx of left cataract extraction (03/2025) Hx of umbilical hernia repair (~2004) Hx of left knee surgery Hx of right knee surgery (~2021) Social History Household Members: Spouse Housing: House Are you a primary career specialist to a significant other at home: No Do you presently have visiting nurse or other home services: No 75 years or older and lives alone: No Patient Tobacco Use Status: Never used Tobacco Second Hand Smoke Exposure: No service: No Current occupational status: retired Current occupation: Left hand dominate Physical Exam Extrem Other: Examination of the patient's right knee shows that the surgical incision is healing well, no erythema, range of motion from -3 degrees to 95 degrees, his patella tracks well Results Reviewed Results Reviewed: X-rays of the patient's right knee taken today show a total knee arthroplasty in good position with no signs of loosening, no acute bony abnormalities Assessment & Plan Assessment & Plan (1) Status post total right knee replacement: Code(s): Z96.651 - Presence of right artificial knee joint Category: Surgical Plan Mr. Salinas is doing well after undergoing right total knee replacement surgery on 05/22/2025. His sabina were removed and Steri-Strips placed over his incision. He was given a prescription for antibiotics which he will take before any dental work. He will continue with his physical therapy. He will contact me prior to his follow-up appointment in 6 weeks should any questions or concerns arise. Feel free to call me at any time should questions regarding his orthopedic management arise. Orders: Orders XR knee RT 3V Today Z96.651 - Presence of right artificial knee joint PT Evaluation and Treatment Today Z96.651 - Presence of right artificial knee joint Medications: New amoxicillin Take four caps (2,000 mg) one hour before any dental work. 2,000 mg (4 x 500 mg) PO ONCE 20 caps 3RF Coding Level of Care Code Global (06008) Diagnoses Status post total right knee replacement Z96.651
== END 2025-06-12 14:32 | disposition home or self-care (01) ==
LOC: HO.HOS 13:31
PROVIDERS: PCP Family Medicine; Visit Provider Orthopaedic Surgery
DX: Z96.651 Presence of right artificial knee joint (principal)
CPT/HCPCS: 99024

== ENCOUNTER → 2025-06-12 13:32 | Outpatient (BNV) | payer MEDICARE, SELFPAY | PROVIDERS: Visit Provider Radiology Diagnostic Radiology | DX: Z96.651 Presence of right artificial knee joint (principal) | CPT/HCPCS: 73562 ==